=== PATIENT | male | born 1980 | race Caucasian/White ===

== ENCOUNTER 2024-02-25 11:06 | Outpatient (AMB) | payer BC, SELFPAY ==
--- NOTE | 2024-02-25 11:19 | MHC.OFFVIS ---
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 He reports tremors in his left leg, face about 5 years ago . He was on [place] at that time and was told it was related to that. [place] was stopped, started on zoloft . The tremors were predominantly on the left side and gradually worsened and involves the right side too. The tremors are mostly at rest. He describes the tremors as twitches and is better with movement. The twitches are worse when he is tired and towards the end of the day. He wakes up in the middle of the night with violent leg twitches and spasms.It is hard to fall asleep after he wakes up. He has snoring and has excessive daytime sleepiness. he reports creepy crawly sensation when he is trying to sleep or when at rest . Moving around helps He denies vivid dreams , reports occasional sleep paralysis. he sings and plays Guitar , piano. Last 18 mths he has noticed that his voice is hoarse, lost an octave and is softer.He also frequent chokes on Liquids. No exposure to neuroleptics or metaclopramide. No h/o head injury. he has neck pain. 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 [facility] Medical History (Updated 02/25/24 @ 12:08 by Mackenzie Perez MD) Neck pain Hypersomnia Snoring Restless legs syndrome (RLS) Tremors of nervous system Benign head tremor Bradshaw's palsy ADD (attention deficit disorder) Anxiety Vitamin D deficiency Psoriatic arthritis Depression Surgical History History of appendectomy Family History Mother HTN (hypertension) COPD (chronic obstructive pulmonary disease) Paternal Grandfather Parkinsons disease Maternal Grandmother Diabetes Maternal Grandfather Diabetes Physical Exam Vital Signs: Last Vital Signs Pulse 90 02/25/24 11:24 BP 115/78 02/25/24 11:24 Pulse Ox 97 02/25/24 11:24 Oxygen Delivery Method Room Air 02/25/24 11:24 BMI result Body Mass Index 28.8 Const General: cooperative and comfortable Nutritional Appearance: average body habitus Orientation/consciousness: patient oriented x3 HEENT Head: Yes normal to inspection and Yes normocephalic Neck Neck: Yes no meningeal signs Neuro Other: Neck tightness with decreased range of motion , tenderness in lateral neck muscles Head tremors - arrhythmic movements - side to side Speech- normal ( nasal tone) Mild left LE rest tremors and left UE tremors FFM and foot taps normal slow but normal gait - can tandem Mallampatti grade 4 General: patient oriented x3, tone normal, moves all extremities, no meningeal signs and no focal motor deficits Cranial nerves: Yes Nystagmus not present, Yes Normal facial strength present and Yes Symmetric palate elevation present Cognition (Neuro): normal cognition Motor exam (neuro): 5/5 motor strength present throughout and Normal motor muscle tone present throughout Deep tendon reflexes (DTR's): Right triceps reflex intensity grade: 1+, Left triceps reflex intensity grade: 1+, Rt Biceps (C5, C6): 1+, Left biceps reflex intensity grade: 1+, Right brachioradialis reflex intensity grade: 1+, Left brachioradialis reflex intensity grade: 1+, Right patellar reflex intensity grade: 1+ and Left patellar reflex intensity grade: 1+ Coordination: kxheir-va-pofo test normal Psych Appearance: grossly normal Mental Status: mental status grossly normal Speech and movement: Normal speech and movement present Affect: normal affect Assessment & Plan Assessment & Plan (1) 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 related to lithium exposure Code(s): G25.0 - Essential tremor Category: Medical (2) Tremors of nervous system: Comment: related to mood and lithium exposure Code(s): R25.1 - Tremor, unspecified Category: Medical (3) Restless legs syndrome (RLS): Code(s): G25.81 - Restless legs syndrome Category: Medical (4) Snoring: Code(s): R06.83 - Snoring Category: Medical (5) Hypersomnia: Code(s): G47.10 - Hypersomnia, unspecified Category: Medical Plan MRI brain SLeep study to r/o sleep apnea and PLMD I will trial him on gabapentin 300mg qhs C spine X ray to evaluate neck pain Declines PT or speech therapy due to lack of time No evidence of Parkinson on todays exam Orders: Orders RT PSG in-lab sleep study Today G25.81 - Restless legs syndrome, G47.10 - Hypersomnia, unspecified, R06.83 - Snoring MR head/brain wo con Today G25.0 - Essential tremor, R25.1 - Tremor, unspecified XR cervical spine 3V Today M54.2 - Cervicalgia Medications: New gabapentin 300 mg PO BEDTIME 30 caps 6RF Coding Level of Care Code New Pt Level 4 (95589) Complex EM visit Add On G2211 Diagnoses Benign head tremor G25.0 Tremors of nervous system R25.1 Restless legs syndrome (RLS) G25.81 Snoring R06.83 Hypersomnia G47.10
[2024-02-25 11:24] VITALS: BP 115/78; PULSE 90; O2SAT 97; BMI 28.8
== END 2024-02-25 12:13 | disposition home or self-care (01) ==
PROVIDERS: Visit Provider Psychiatry & Neurology Neurology
DX: G25.0 Essential tremor (principal); R25.1 Tremor, unspecified; G25.81 Restless legs syndrome; R06.83 Snoring; G47.10 Hypersomnia, unspecified
CPT/HCPCS: 99204

== ENCOUNTER → 2024-02-25 11:06 | Outpatient (BNVA) | payer BC, SELFPAY | PROVIDERS: Visit Provider Psychiatry & Neurology Neurology ==

== ENCOUNTER → 2024-05-16 10:32 | Outpatient (BNV) | payer BC, SELFPAY | PROVIDERS: Visit Provider Radiology Diagnostic Radiology | DX: G08 Intracranial and intraspinal phlebitis and thrombophlebitis (principal) | CPT/HCPCS: 70553 ==

== ENCOUNTER 2024-05-16 10:34 | Outpatient (REF) | payer BC, SELFPAY ==
--- NOTE | ~2024-05-16 | MR_ITS ---
EXAMINATION: MR BRAIN WITHOUT AND WITH CONTRAST. MRV brain with contrast CLINICAL INFORMATION: Intracranial intraspinal phlebitis and thrombophlebitis. COMPARISON: MRI brain 03/18/2024 TECHNIQUE: Multiplanar, multisequence MRI of the brain was obtained before and after the intravenous administration of 9 mL gadolinium. . 3-D ixrc-dv-lirirn sequence with attention MRV of the brain was performed. . Raw and post process data is available for interpretation. FINDINGS: There is no restricted diffusion seen to suspect any acute ischemic changes. No magnetic susceptibility artifact seen to suspect acute or chronic hemorrhagic products. There is no calcification seen either. Previously seen flow void signal in the left transverse and sigmoid sinus on T1 sequence has resolved. The santiago to white matter differentiation is maintained normal. There is no abnormal signal in the supratentorial and infratentorial brain on T2 sequences. Postcontrast there is no abnormal enhancement seen. The lateral ventricles are symmetrical in size and configuration without enlargement. Normal flow void signal seen in the major cerebral vasculature. On MRV there is good opacification of superior inferior sagittal sinus and internal cerebral veins. Bilateral transverse, sigmoid sinuses and bilateral jugular veins are widely patent. There is mild relative ectasia of the basilar artery which appears unremarkable. Bilateral internal carotid arteries are visualized and patent. There is normal bifurcation and anterior middle sacral artery. A very small anterior communicating artery seen. No aneurysm or atherosclerotic narrowing noted. 2-D mefq-cv-elkvki postcontrast reveals. MR/MR head/brain wo/w con IMPRESSION: The thrombus within the left sigmoid and left transverse colon has resolved. There is good opacification of bilateral transverse, sigmoid sinuses and jugular veins. No thrombus visualized at this time. There is no acute bleed, infarct, edema or midline shift. Electronically signed by: Gilberto Moss MD 05/16/2024 04:02 PM [facility]
--- OUTSIDE RECORDS SUMMARY | 2024-05-16 10:37 | XMS_ITS ---
Author Name [facility] Unknown History of Medication Use Medication Directions Dispensed Refills Start Date End Date Stat ketoconazole (NIZORAL) 2 % cream Apply topically 2 (two) times a day. 03/05/2024 05/17/9999 active dicyclomine (BENTYL) 20 MG tablet Take 1 tablet 30 min prior to meals and bedtime as needed for diarrhea, cramping. 03/05/2024 05/17/9999 active sertraline (ZOLOFT) 50 MG tablet Take 100 mg by mouth daily. 03/05/2024 05/17/9999 active qzvthi-otemuaadn-kmhb esium sulfates (Suprep Bowel Prep Kit) 17.5-3.13-1.6 GM/177ML Solution solution Take two 177 mL bottles as directed 03/05/2024 05/17/9999 active lithium carbonate 300 MG IR capsule Take 300 mg by mouth 2 (two) times a day. 03/05/2024 05/17/9999 active amphetamine-dextroamp hetamine (ADDERALL) 10 MG tablet 2 (two) times a day in the morning and the early afternoon. 03/05/2024 05/17/9999 active OLANZapine (ZyPREXA) 5 MG tablet Take 5 mg by mouth daily. 03/05/2024 05/17/9999 active FLUoxetine (PROzac) 10 MG capsule 03/05/2024 05/17/9999 active doxycycline (VIBRA-TABS) 100 MG tablet Take 1 tablet (100 mg total) by mouth 2 (two) times a day. 03/05/2024 05/17/9999 active atorvastatin (LIPITOR) 40 MG tablet TAKE 1 TABLET BY MOUTH EVERY DAY 03/05/2024 05/17/9999 active ergocalciferol (VITAMIN D2,DRISDOL) 56889 units Cap TAKE 1 CAPSULE BY MOUTH ONE TIME PER WEEK 03/05/2024 05/17/9999 active metFORMIN (GLUCOPHAGE-XR) 500 MG 24 hr tablet TAKE 1 TABLET BY MOUTH EVERY DAY IN THE EVENING WITH FOOD 03/05/2024 05/17/9999 active baclofen (LIORESAL) 5 MG tablet 03/05/2024 05/17/9999 active eluxadoline (Viberzi) 100 MG tablet Take 1 tablet (100 mg total) by mouth 2 (two) times a day with meals. 03/05/2024 05/17/9999 active propranolol (INDERAL LA) 160 MG SR capsule 03/05/2024 05/17/9999 act royce Problems Problem Status Onset Date Problem Type Date of Resolution Source Irritable bowel syndrome with diarrhea active 2020-04-15 ProblemAct [facility] Involuntary movements active EncounterDiagnosis Act [facility] Tardive dyskinesia active EncounterDiagnosisAct [facility] Parkinson's disease, unspecified whether dyskinesia present, unspecified whether manifestations fluctuate (HCC) active EncounterDiagnosisAct C CT Heme positive stool active 2020-04-15 ProblemAct [facility]
[2024-05-16] MEDS: gadobutroL 10 ML VIAL IVPUSH (11:21)
== END 2024-05-16 10:35 | disposition home or self-care (01) ==
LOC: HO.MRI 10:34
PROVIDERS: Visit Provider Psychiatry & Neurology Neurology
DX: G08 Intracranial and intraspinal phlebitis and thrombophlebitis (principal)
CPT/HCPCS: 70553; A9585

== ENCOUNTER 2024-05-30 07:57 | Outpatient (AMB) | payer BC, SELFPAY ==
--- NOTE | 2024-05-30 08:06 | A.OFFVIS_ITS ---
Vital Signs 05/30/24 08:07 Height 6 ft Weight 200 lb 8 oz BMI 27.2 BP 120/76 Blood Pressure Location Rt brachial Position Sitting Pulse 77 Pulse Source Pulse Oximeter Pulse Oximetry (%) 96 Oxygen Delivery Method Room Air Intake Visit Reasons: Follow up Parkinsons Allergies No Known Allergies Allergy (Verified 05/30/24 08:08) Medication List - Last Reconciled 05/30/24 by Mackenzie Perez MD clonazepam 1 mg PO BEDTIME dextroamphetamine-amphetamine 10 mg (Adderall) 10 mg PO TID gabapentin 300 mg PO BEDTIME methotrexate sodium 2.5 mg PO QWEEK secukinumab (Cosentyx) 150 mg subcut Q4W semaglutide (Ozempic) 1 mg subcut QWEEK HPI Comments Details: 44y/o Right handed male comes for follow up. He is sleeping better with gabapentin so he declined sleep study. His tremor shave mildly improved. 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 the tremors have mildly improved . They are worse when he is sitting still and has difficulty when he plays guitar or piano. History form initial visit-.02/2024 He reports tremors in his left leg, face about 5 years ago . He was on [place] at that time and was told it was related to that. [place] was stopped, started on zoloft . The tremors were predominantly on the left side and gradually worsened and involves the right side too. The tremors are mostly at rest. He describes the tremors as twitches and is better with movement. The twitches are worse when he is tired and towards the end of the day. He wakes up in the middle of the night with violent leg twitches and spasms.It is hard to fall asleep after he wakes up. He has snoring and has excessive daytime sleepiness. he reports creepy crawly sensation when he is trying to sleep or when at rest . Moving around helps He denies vivid dreams , reports occasional sleep paralysis. he sings and plays Guitar , piano. Last 18 mths he has noticed that his voice is hoarse, lost an octave and is softer.He also frequent chokes on Liquids. No exposure to neuroleptics or metaclopramide. No h/o head injury. he has neck pain. 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 [facility] Medical History Neck pain Hypersomnia Snoring Restless legs syndrome (RLS) Tremors of nervous system Benign head tremor Bradshaw's palsy ADD (attention deficit disorder) Anxiety Vitamin D deficiency Psoriatic arthritis Depression Surgical History History of appendectomy Family History Mother HTN (hypertension) COPD (chronic obstructive pulmonary disease) Paternal Grandfather Parkinsons disease Maternal Grandmother Diabetes Maternal Grandfather Diabetes Physical Exam Vital Signs: Last Vital Signs Pulse 77 05/30/24 08:07 BP 120/76 05/30/24 08:07 Pulse Ox 96 05/30/24 08:07 Oxygen Delivery Method Room Air 05/30/24 08:07 BMI result Body Mass Index 27.2 Const General: cooperative and comfortable Nutritional Appearance: average body habitus Orientation/consciousness: patient oriented x3 HEENT Head: Yes normal to inspection and Yes normocephalic Neck Neck: Yes no meningeal signs Neuro Other: Neck tightness with decreased range of motion , tenderness in lateral neck muscles very mild Head tremors - arrhythmic movements - side to side- less compared to before Speech- normal ( nasal tone) Mild right postural tremors FFM and foot taps normal slow but normal gait - can tandem Mallampatti grade 4 General: patient oriented x3, tone normal, moves all extremities, no meningeal signs and no focal motor deficits Cranial nerves: Yes Nystagmus not present, Yes Normal facial strength present and Yes Symmetric palate elevation present Cognition (Neuro): normal cognition Motor exam (neuro): 5/5 motor strength present throughout and Normal motor muscle tone present throughout Coordination: [id number] test normal Psych Appearance: grossly normal Mental Status: mental status grossly normal Speech and movement: Normal speech and movement present Affect: normal affect Assessment & Plan Assessment & Plan (1) 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 related to lithium exposure Code(s): G25.0 - Essential tremor Category: Medical (2) Tremors of nervous system: Comment: related to mood and lithium exposure Code(s): R25.1 - Tremor, unspecified Category: Medical (3) Restless legs syndrome (RLS): Code(s): G25.81 - Restless legs syndrome Category: Medical Plan MRI brain MRv reviewed SLeep study - declined Continue gabapentin 300mg qhs Declines PT or speech therapy due to lack of time No evidence of Parkinson on todays exam Coding Level of Care Code Est Pt Level 4 (40326) Complex EM visit Add On G2211 Diagnoses Benign head tremor G25.0 Tremors of nervous system R25.1 Restless legs syndrome (RLS) G25.81
[2024-05-30 08:07] VITALS: BP 120/76; PULSE 77; O2SAT 96; BMI 27.2
== END 2024-05-30 08:39 | disposition home or self-care (01) ==
PROVIDERS: Visit Provider Psychiatry & Neurology Neurology
DX: G25.0 Essential tremor (principal); G25.81 Restless legs syndrome
CPT/HCPCS: 99214

== ENCOUNTER 2024-11-28 08:03 | Outpatient (AMB) | payer BC, SELFPAY ==
--- OUTSIDE RECORDS SUMMARY | 2024-05-26 04:40 | XMS_ITS ---
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 Name Role Phone Lorraine LOCKETT, Yasmeen Primary Care Provider Unavail able JANIS JANE Unavailable [phone] WillsonThierry loaizamario Unavailable [phone] Allergies Allergen (clinical drug ingredient) Drug/Non Drug Allergy documented on EMR Reaction Allergy Type Onset Date Status Wheat wheat (uncoded) swelling, skin rash Allergy Active REASON FOR VISIT Pt last saw PCP Yasmeen Peters MD , lab 03.08.24, fatigue 9/10 , AMS 2hrs, pain 7-8/10 neck, elbows, hands, knees, ankles,feet, Cosentyx 150 mg for PsA appr until 02/24/2025 ; QFN TB-Neg 03.08.24, last Cosentyx 05.02.24 Medications Medication SIG (Take, Route, Frequency, Duration) Notes Start Date End Date Status Vitamin D (Cholecalciferol) 50 MCG (1999) 1 capsule Orally Once a day Active Adderall XR 10 MG 1 capsule in the mor josse Orally three time a day Active Ozempic (1 MG/DOSE) 4 MG/3ML as directed Subcutaneous Act royce Pimecrolimus 1 % 1 application Diamond Sizer al Twice a day; Duration: 30 days Active Methotrexate Sodium 2.5 MG 6 tabs orally once a week; Duration: 28 days Active Folic Acid 1 MG 1 tablet Orally Once a day except on the Methotrexate day; Duration: 30 days 12/08/2023 Active Cosentyx Sensoready Pen 150 MG/ML 150 mg Subcutaneous once every 4 weeks 02/23/2024 Active Ergocalciferol 50,000 IU 1 capsule oral q week Active Vital Signs Blood pressure systolic 128 mm Hg 05/26/19 25 Blood pressure diastolic 83 mm Hg 025 Heart Rate 77 /min 05/26/2024 Temperature 36.3 C 05/26/2024 Encounters Encounter Location Date Provider Diagnosis [facility] [address], [place] [id number] 05/26/2024 Louis Willson Psoriatic arthritis L40.50 ; Rheumatoid factor positive R76.8 ; Lateral epicondylitis, right elbow M77.11 ; Trochanteric bursitis, right hip M70.61 ; Spondylosis without myelopathy or radiculopathy, lumbosacral 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 on Cosentyx and MTX 6 tabs/ week. 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 - OV 04.05.2024: Pt. on Cosentyx, loading dosages. Stopped Methotrexate since starting the Cosentyx in .Pt. to resume MTX at 6 tabs/ week and continue cosentyx. OV 10..24 insufficient response to Methotrexate. Adding a bDMARD is needed. Neurological symptoms (abnormal body movements) of unclear origin, pt awaits Neurology eval, will defer TNF blockers for now. OV .: Pt. on MTX and was tolerating well until recently when he had COVID. Medrol dose Gerald given and will continue with MTX. OV 12.08.2023: No evidence of ANCA Associated Vasculitis (normal renal function, normal UA, no chronic sinusitis, no vasculitic skin lesion, no NS involvement). Negative Antiphospholipid antibody panel (neg aCL, [id number], neg LAC). + Psoriasis, HS-CRP elevated. OV . Recent diagnosis of Psoriasis. Pt. reports ongoing severe polyarthralgia for past 4 years accompanied by prolonged morning stiffness 2 hours and fatigue. Inflammatory atraumatic back pain (improves with activity, not relieved by rest). Daily use of OTC anti-inflammatory, not effective. Labs now. Continue Methotrexate at 6 tabs/week C-spine XR, (B) shoulder XR. - PT defers X-rays and U/S because of deductible cost . At next OV (B) foot XR, (B) hand XR. - Defers Hold Cosentyx if you develop any allergic skin rash outside of the injection site. It is common to have an irritated skin at the Cosentyx injection site.Hold Cosentyx if you develop any infection.Covid -19 vaccines and Cosentyx - no adjustment of the timing of the vaccine in relation to Cosentyx is needed.No rheumatic contraindications to any inactivated (killed) vaccines. All Covid-19 vaccines are inactivated vaccines. Avoid live vaccines.Follow up with your PMD re: age appropriate vaccinations.Annual screening for tuberculosis with either a blood test (Quantiferon TB Gold) or PPD is advised when treated with Cosentyx.Return for Office visit in 3 months or sooner if needed. . 05/26/2024 Rheumatoid factor positive (ICD-10 - R76.8) Despite +RF no rheumatoid arthritis is seen 05/26/2024 Lateral epicondylitis, right elbow (ICD-10 - M77.11) 05/26/2024 Trochanteric bursitis, right hip (ICD-10 - M70.61) 05/26/2024 Spondylosis without myelopathy or radiculopathy, 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) 05/26/2024 Disorder of bone density and structure, unspecified (ICD-10 - M85.9) 05/26/2024 Plaque psoriasis (ICD-10 - L40.0) 05/26/2024 Celiac disease (ICD-10 - K90.0) 05/26/2024 Vitamin D deficiency (ICD-10 - E55.9) 05/26/2024 Pain in left elbow (ICD-10 - M25.522) Plan Of Treatment Medication Medication Name Sig Start Date Stop Date Notes Vitamin D (Cholecalciferol) 50 MCG (1999 UT) 1 capsule Orally Once a day Methotrexate Sodium 2.5 MG 6 tabs orally once a week; Duration: 28 days Folic Acid 1 MG 1 tablet Orally Once a day except on the Methotrexate day; Duration: 30 days 12/08/2023 Cosentyx Sensoready Pen 150 MG/ML 150 mg Subcutaneous once every 4 weeks 02/23/2024 Treatment Notes Assessment Notes Psoriatic arthritis Labs now. Continue Methotrexate at 6 tabs/week C-spine XR, (B) shoulder XR. - PT defers X-rays and U/S because of deductible cost . At next OV (B) foot XR, (B) hand XR. - Defers Hold Cosentyx if you develop any allergic skin rash outside of the injection site. It is common to have an irritated skin at the Cosentyx injection site.Hold Cosentyx if you develop any infection.Covid -19 vaccines and Cosentyx - no adjustment of the timing of the vaccine in relation to Cosentyx is needed.No rheumatic contraindications to any inactivated (killed) vaccines. All Covid-19 vaccines are inactivated vaccines. Avoid live vaccines.Follow up with your PMD re: age appropriate vaccinations.Annual screening for tuberculosis with either a blood test (Quantiferon TB Gold) or PPD is advised when treated with Cosentyx.Return for Office visit in 3 months or sooner if needed. . Pending Test Test Name Order Date HEPATIC FUNCTION PANEL 05/26/2024 CREATININE 05/26/2024 CBC (INCLUDES DIFF/PLT) 05/26/2024 SED RATE BY MODIFIED WESTERGREN 05/26/19 25 HS-CRP 05/26/2024 Next Appt Details Follow Up: 6 Weeks, Reason: Provider Name:Louis Willson, 02/10/2025 08:00:00 AM, [address] [place] [address], [phone], Progress Notes * VIKI OLIVERDOB:1980 (44 yo M)Acc No.[id number]:05/26/2024 Progress Notes Patient: VIKI KEYS Provider: Olya Willson APRN :1980 A ge:44 Y S ex:Male Date:05/26/2024 [facility] [id number] Pcp:Yasmeen Peters MD Subjective: * Chief Complaints: * 1 . Pt last saw PCP Yasmeen Peters MD . 2. Lab 03.08.24. 3. fatigue 9/10 , AMS 2hrs. 4. Pain 7-8/10 neck, elbows, hands, knees, ankles,feet. 5. Cosentyx 150 mg for PsA appr until 02/24/2025 ; QFN TB-Neg 03.08.24. 6. last Cosentyx 05.02.24. * HPI: R heumatology, Other: Demographics 4 2MW Psoriasis, Psoriatic Arthritis, Celiac Sprue, + ANCA. The patient presents with the following symptoms 1 .02.09 P t last saw PCP Yasmeen Peters MD , lab 03.08.24, fatigue 9/10 , AMS 2hrs, pain 7-8/10 neck, elbows, hands, knees, ankles,feet, Cosentyx 150 mg for PsA appr until 02/24/2025 ; QFN TB-Neg 03.08.24, last Cosentyx 05.02.24. P sA:Pt. on Cosentyx 150mg and MTX 6 tabs/ week. Tolerating well. 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 1 06.05.23 Pt last saw PCP Yasmeen Peters MD 02/2024, lab 03.08.24, fatigue 10/10, AMS 2hrs, pain 5-7/10 neck, elbows, hips, hands, knees, feet, Cosentyx 150 mg for PsA appr until 02/24/2025 ; QFN TB-Neg 03.08.24, last dose of Cosentyx 04/04/2024. P sA: P t. has had 4 loading dosages. Reports no side effects from it. Is tolerating wel. Unable to tell if its helping. 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 IgA undetectable. 9 . P t last saw PCP Dr. Peters , lab 7, fatigue 10/10 , AMS 2hr+, pain 2-6/10 shoulders, elbows, hands, RT hip, knees, ankles, feet, Neurologist; waiting for the referral to be sent. P sA:Pt. on MTX. Pt. states he was doing really well but he got COVID 2.5 weeks ago and since had been having increased fatigue and some worsening Psoriasis. Pt. did not end up taking the Paxlovid. Still experiencing cough and fatigue. P t last saw PCP Dr. Peters , lab 7.24, fatigue 10/10, AMS 2hs, pain 8- 9/10 hands, RT hip, LT elbow, knees, ankles, feet, CXR 11.24.23 NAD. L abs 11.24.2023: U caitlin acid 8.5 (H), Vit D 24 (L), LAC neg, HS-CRP 3.7 (H), RF 10 (H) D XA 7.:Normal X R R hip 7.:Normal X R LS 7.:Normal X R R elbow 7.:Osteophytes C XR 7.02.08 : NAD C ONSULT 7. P t was last seen by PMD Yasmeen Peters MD 10/2023, Fatigue 9/10, AMS 2hrs, pain 7-9/10 neck, elbow, hands, hips, knees,ankles, feet, Recent Xrays none /Recent DXA none, last labs 09/2023 quest. P t. reports pain in his leg that started about 4 years ago and as of now he has been having pain all over and exreme fatigue. Has been using Advil or Tylenol which has not helped. N O Recurrent feversNO Photosensitive skin rashes NO ALOPECIANO Raynaud's Phenomenon; No fingertip ulcer, No toe tip ulcerYES Dry eye, NO use of artificial tearsNO Dry mouth; NO Need to sip on water while swallowing a dry crackerNO Mouth ulcersNO GENITAL ULCERS EVERNO Ever skin biopsy N O Swollen painful jointsYES Painful but not swollen joints AND morning stiffness 30 or more minutesNO H/o pericarditisNO H/o Pleurisy or Pleural effusionsNO DRY COUGHYES FREQUENT SINUSITIS N O H/o low WBCNO H/o anemiaNO H/o low platelet count N O Ever deep vein thrombosis, NO arterial thrombosis, NO stroke, NO AMI Y ES atraumatic onset of back pain;;YES Back pain better with movement AND not relieved by restNO Back pain preciptated by trauma, N O Buttock pain, Y ES h/o tennis elbowNO h/o plantar fasciitisNO h/o frozen shoulderNO Trigger finger N O h/o uveitis, iritis Y ES GI problems -YES IBS, no food allergiesNO personal h/o Inflammatory Bowel DiseaseYES h/o celiac Sprue, N O Autoimmune FHx - no psoriasis, no Psoriatic Arthritis N O Autoimmune FHx : NO FHx Crohn's colitis, No FHx Ulcerative Colitis, No FHx Celiac Sprue N O Autoimmune FHx of NO Rheumatoid Arthritis, NO FHx lupus, No FX Multiple Sclerosis.. Medications Include C OSENTYX, L abs review 11.17.23 - h/o [place] (Dr. Jesus Peters), h/o Propranolol 120 mg/d; , METHOTREXATE 11/2023. Laboratory results include : Uric acid 8.5 (H), Vit D 24 (L), LAC neg, HS-CRP 3.7 (H), RF 10 (H). Diagnostic Imaging Includes C XR 11.24.23 NAD. 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 * ROS: R heumatology: Fatigue Y es. F ever N o. C hills N o. N ight Sweats Y es. W eight Loss N o. H ands change color in the cold Y es. D ry Eyes Y es. D ry Mouth Y es. S tiffness in AM Y es. J aw pain or tired when chewing Y es. H eadaches Y es. P ain in eyes N o. R edness in eyes N o. B lurred or Double Vision Y es. F loaters Y es. F lashes Y es. H air Loss that left bald patch behind N o. M outh ulcers N o. N nanette Ulcers N o.?Frequent sore throat Y es. L ymphadenopathy N o. C hest pain N o. S hortness of breath Y es. C ough N o. C oughing up Blood N o. H eartburn Y es.?Chest pain when taking in deep breath N o. W heezing N o. A bdominal pain N o. D iarrhea N o. N ausea N o. V omiting N o. C onstipation N o. Dysuria N o. I ncontinence N o. P rostate Troubles N o. M iscarriages?No. R ecurrent sinus infection Y es. R ecurrent ear infection Y es. B leeding gums N o. P soriasis Y es. S kin rash after sun exposure N o. N odules/Bumps No. M uscle weakness Y es. T ingling Y es. N umbness Y es. B urning N o. F alls N o. A nxiety Y es. D epression Y es. A nemia N o.?Bleeding Tendency N o. R inging in ears Y es. L oss of hearing Y es. H eight loss N o. H eart murmur N o. B lood in stool N o. H eel pain N o.?Fevers without infection N o. D iscomfort or pain in BUTTOCK N o. W eight GAIN?No. * Medical History: a rthritis: No, anxiety: Yes, asthma: No, eczema: Yes, psoriasis: Yes, osteoporosis: No, gout: No, hypothyroidism: No, abnormal liver function: No, fatty liver: No, acid reflux: Yes, bowel disorders: Yes, Crohns SI: No, ulcerative colitis: No, celiac sprue: Yes, diverticulosis: No, hives: No, hypertension: No, multiple sclerosis: No, recurrent sinusitis: No, sleep apnea: No, varicose veins: No, kidney stones: No, migraine headaches: No, human immunodeficiency virus (HIV), positive: No, cancer, colon: No, family history of colon cancer: No, Psoriasis. * Surgical History: A ppendectomy 2009, no EGD/Colonoscopy . * Family History: F ather: alive 70 yrs, healthy. M other: alive 68 yrs, healthy. P aternal Grand Father: , parkinsons. P aternal Grand Mother: Diabetes. M aternal Grand Father: Cancer, diabetes. Maternal Grand Mother: Diabetes. S iblings: 2 siblings healthy. C hildren: none. * Social History: T obacco Use: S moking: Yes. * Medications: T aking Cosentyx Sensoready Pen 150 MG/ML Solution Auto-injector 150 mg Subcutaneous once every 4 weeks , Taking Methotrexate Sodium 2.5 MG Tablet 6 tabs orally once a week , Taking Folic Acid 1 MG Tablet 1 tablet Orally Once a day except on the Methotrexate day , Taking Ergocalciferol 50,000 IU capsule 1 capsule oral q week , Taking Vitamin D (Cholecalciferol) 50 MCG (1999 UT) Capsule 1 capsule Orally Once a day , Taking Adderall XR 10 MG Capsule Extended Release 24 Hour 1 capsule in the morning Orally three time a day , Taking Ozempic (1 MG/DOSE) 4 MG/3ML Solution Pen-injector as directed Subcutaneous , Taking Pimecrolimus 1 % Cream 1 application External Twice a day , Discontinued Cosentyx Sensoready Pen 150 MG/ML Solution Auto-injector 150 mg Subcutaneous once a week x 5, then once every 4 weeks , Discontinued Medrol 4 MG Tablet Therapy Pack 6 TABS FIRST DAY, TAPER BY 1 TAB A DAY UNTIL OFF Orally daily * Allergies: W heat: Swelling, Skin Rash. Objective: * Vitals: B P:128/83mm Hg, HR:77/min, Temp:36.3C. * Examination: a llergy: GENERAL APPEARANCE: i n no acute distress, well developed, well nourished. HEAD: n ormocephalic, atraumatic, Thyroid not palpable, not tender, no temporal artery tenderness (B), , temporal artery pulse 2+(B), parotid glands not enlarged, no maxillary sinus tenderness (B). EYES: p upils equal, round, reactive to light and accommodation. EARS: n ormal. ORAL CAVITY: m ucosa moist, no lesions. THROAT: c lear. NECK/THYROID: n o cervical lymphadenopathy, no palpable thyroid. LYMPH NODES: n o lymphadenopathy. SKIN: s nina, erythematous patches Face around the eyes. - Psoriasis. HEART: n o costochondral tenderness, regular rate and rhythm, S1, S2 normal. LUNGS: c lear to auscultation bilaterally. ABDOMEN: n ormal, bowel sounds present, no hepatosplenomegaly, no masses palpable, no rebound tenderness, soft, nontender, nondistended. EXTREMITIES: n o clubbing, cyanosis, or edema, no nail pitting. NEUROLOGIC: n onfocal, motor strength normal upper and lower extremities, sensory exam intact. R heumatology: CERVICAL SPINES: n o vertebral tenderness, normal range of motion without discomfort, no paravertebral muscle spasm (B). LUMBAR SPINES: n o vertebral tenderness, straight leg raise unremarkable, normal forward and lateral bending, normal extension. SHOULDERS: n ormal range of motion w/o pain, No proximal muscle tenderness, (B)No proximal muscle weakness. ELBOWS: n o swelling, normal range of motion, R elbow tenderness, Louis Willson 12/08/2023 02:50:27 PM EDT > . WRISTS: ( B)wrist no synovitis, normal range of motion without discomfort, negative Tinel's sign. HANDS: n o synovitis, no tenderness, normal range of motion, no tenderness of the flexor tendons. HIPS: n ormal range of motion, (B)no trochanteric tenderness, (B)no inguinal tenderness, (B)No proximal muscle tenderness , (B)No proximal muscle weakness.? KNEES: ( B)no tenderness, no effusion, , normal alignment and range of motion. ANKLES: ( B)no tenderness, no swelling, ankle joint tenderness, swelling, normal range of motion, no (B)plantar fascia tenderness at the insertion into calcaneal bone, no (B)Achilles enthesis tenderness. FEET: n ormal, no pain or swelling, full ROM. THORACIC SPINE: n o vertebral tenderness, full ROM. SACROILIAC: n o tenderness, sacroiliac stressing test negative, (B) Tin's test negative . FIBROMYALGIA TENDER POINTS: N o diffuse trigger point tenderness. Assessment: * Assessment: 1. P soriatic arthritis - L40.50 (Primary) S pecify :celiac sprue, IBS, Psoriasis; referred by Dr. Peters; +hsC-RP 12.8H in ; N otes :- OV 05.26.2024: Pt. on Cosentyx and MTX 6 tabs/ week. 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 - OV 04.05.2024: Pt. on Cosentyx, loading dosages. Stopped Methotrexate since starting the Cosentyx in .Pt. to resume MTX at 6 tabs/ week and continue cosentyx.OV 10.01.08 insufficient response to Methotrexate. Adding a bDMARD is needed. Neurological symptoms (abnormal body movements) of unclear origin, pt awaits Neurology eval, will defer TNF blockers for now. OV 9.: Pt. on MTX and was tolerating well until recently when he had COVID. Medrol dose Gerald given and will continue with MTX.OV 12.08.2023: No evidence of ANCA Associated Vasculitis (normal renal function, normal UA, no chronic sinusitis, no vasculitic skin lesion, no NS involvement). Negative Antiphospholipid antibody panel (neg aCL, [id number], neg LAC). + Psoriasis, HS-CRP elevated.OV . Recent diagnosis of Psoriasis. Pt. reports ongoing severe polyarthralgia for past 4 years accompanied by prolonged morning stiffness 2 hours and fatigue. Inflammatory atraumatic back pain (improves with activity, not relieved by rest). Daily use of OTC anti-inflammatory, not effective. 2 . R heumatoid factor positive - R76.8 S pecify :11.24.2023 RF 10 (H), nl < 6.0; N otes :Despite +RF no rheumatoid arthritis is seen 3 . L ateral epicondylitis, right elbow - M77.11 4 . T rochanteric bursitis, right hip - M70.61 5 . S pondylosis without myelopathy or radiculopathy, lumbosacral region - M47.817 6 . D isorder of bone density and structure, unspecified - M85.9 S pecify :DXA NAD 7 . P laque psoriasis - L40.0 8 . C eliac disease - K90.0? 9. V itamin D deficiency - E55.9 S pecify :11.24.2023 Vit D 24 (L) 1 0. P ain in left elbow - M25.522 Plan: * Treatment: 2. V itamin D deficiency Continue Vitamin D (Cholecalciferol) Capsule, 50 MCG (1999 UT), 1 capsule, Orally, Once a day. * Follow Up: 6 Weeks * * Electronic signature of Abby Willson APRN on 11/28/2024 at 08:06 AM EDT Sign off status: Pending * Provider: Olya Willson APRN Date: 0 05/26/2024 Generated for Jesus irene/Mariann/Ian on: 0 11/28/2024 08:06 AM EDT History and Physical Notes * HPI (History of Present Illness) Category Sub-Category Detail Notes Category Not es Rheumatology, Other Demographics 42MW Psoriasis, Psoriatic Ar thritis, Celiac Sprue, + ANCA 12.08.2023 ANCA positive-> Questions: YES Recurrent sinusitis YES Shortness of breath NO Cough NO Elevated serum Creatinine NO Abnormal urinalysis (IF Abnormal urinalysis-> NO Elevated urine RBC NO Proteinuria); NO vasculitic skin rashes NO special organ involvement: NO EYE involvement -episcleritis, scleritis, intermediate uveitis, posterior uveitis, retro-orbital tumor); 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 PsA: Pt. on Cosentyx 150mg and MTX 6 tabs/ week. Tolerating well. 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 04.05.24 Pt last saw PCP Yasmeen Peters MD 02/2024, lab 03.08.24, fatigue 10/10, AMS 2hrs, pain 5-7/10 neck, elbows, hips, hands, knees, feet, Cosentyx 150 mg for PsA appr until 02/24/2025 ; QFN TB-Neg 03.08.24, last dose of Cosentyx 04/04/2024. PsA: Pt. has had 4 loading dosages. Reports no side effects from it. Is tolerating wel. Unable to tell if its helping. 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 IgA undetectable. 01.19.2024 Pt last saw PCP Dr. Peters , lab 11.24.23, fatigue 10/10 , AMS 2hr+, pain 2-6/10 shoulders, elbows, hands, RT hip, knees, ankles, feet, Neurologist; waiting for the referral to be sent. PsA: Pt. on MTX. Pt. states he was doing really well but he got COVID 2.5 weeks ago and since had been having increased fatigue and some worsening Psoriasis. Pt. did not end up taking the Paxlovid. Still experiencing cough and fatigue. 12.08.2023 Pt last saw PCP Dr. Peters , lab 11.24.23, fatigue 10/10, AMS 2hs, pain 8-9/10 hands, RT hip, LT elbow, knees, ankles, feet, CXR 11.24.23 NAD. Labs 11.24.2023: Uric acid 8.5 (H), Vit D 24 (L), LAC neg, HS-CRP 3.7 (H), RF 10 (H) DXA 7.: Normal XR R hip 7..2023: Normal XR LS 7.: Normal XR R elbow 7.: Osteophytes CXR 11.24.23 : NAD CONSULT . Pt was last seen by PMD Yasmeen Peters MD 10/2023, Fatigue 9/10, AMS 2hrs, pain 7-9/10 neck, elbow, hands, hips, knees,ankles, feet, Recent Xrays none /Recent DXA none, last labs 09/2023 quest. Pt. reports pain in his leg that started about 4 years ago and as of now he has been having pain all over and exreme fatigue. Has been using Advil or Tylenol which has not helped. NO Recurrent feversNO Photosensitive skin rashes NO ALOPECIANO Raynaud's Phenomenon; No fingertip ulcer, No toe tip ulcerYES Dry eye, NO use of artificial tearsNO Dry mouth; NO Need to sip on water while swallowing a dry crackerNO Mouth ulcersNO GENITAL ULCERS EVERNO Ever skin biopsy NO Swollen painful jointsYES Painful but not swollen joints AND morning stiffness 30 or more minutesNO H/o pericarditisNO H/o Pleurisy or Pleural effusionsNO DRY COUGHYES FREQUENT SINUSITIS NO H/o low WBCNO H/o anemiaNO H/o low platelet count NO Ever deep vein thrombosis, NO arterial thrombosis, NO stroke, NO AMI YES atraumatic onset of back pain;;YES Back pain better with movement AND not relieved by restNO Back pain preciptated by trauma, NO Buttock pain, YES h/o tennis elbowNO h/o plantar fasciitisNO h/o frozen shoulderNO Trigger finger NO h/o uveitis, iritis YES GI problems -YES IBS, no food allergiesNO personal h/o Inflammatory Bowel DiseaseYES h/o celiac Sprue, NO Autoimmune FHx - no psoriasis, no Psoriatic Arthritis NO Autoimmune FHx : NO FHx Crohn's colitis, No FHx Ulcerative Colitis, No FHx Celiac Sprue NO Autoimmune FHx of NO Rheumatoid Arthritis, NO FHx lupus, No FX Multiple Sclerosis. Medications Include COSENTYX, [place] bs review 11.17.23 - h/o [place] (Dr. Jesus Peters), h/o Propranolol 120 mg/d; , METHOTREXATE 11/2023 Laboratory results include 11.24.2023: Uri c acid 8.5 (H), Vit D 24 (L), LAC neg, HS-CRP 3.7 (H), RF 10 (H) Diagnostic Imaging Includes CXR 11.24.23 N AD Examination Category Sub-Category Detail Notes Category Not es Rheumatology CERVICAL SPINES: no vertebral te nderness, normal range of motion without discomfort, no paravertebral muscle spasm (B) LUMBAR SPINES: no vertebral tendern ess, straight leg raise unremarkable, normal forward and lateral bending, normal extension SHOULDERS: normal range of johnnie on w/o pain, No proximal muscle tenderness, (B)No proximal muscle weakness ELBOWS: no swelling, normal range of motion, R elbow tenderness, Louis Willson 12/08/2023 02:50:27 PM EDT > WRISTS: (B)wrist no synoviti s, normal range of motion without discomfort, negative Tinel's sign HANDS: no synovitis, no ten derness, normal range of motion, no tenderness of the flexor tendons HIPS: normal range of johnnie on, (B)no trochanteric tenderness, (B)no inguinal tenderness, (B)No proximal muscle tenderness , (B)No proximal muscle weakness KNEES: (B)no tenderness, no effusion, , normal alignment and range of motion ANKLES: (B)no tenderness, no swelling, ankle joint tenderness, swelling, normal range of motion, no (B)plantar fascia tenderness at the insertion into calcaneal bone, no (B)Achilles enthesis tenderness FEET: normal, no pain or s welling, full ROM THORACIC SPINE: no vertebral tendern ess, full ROM SACROILIAC: no tenderness, sacro iliac stressing test negative, (B) Tin's test negative FIBROMYALGIA TENDER POINTS: 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 allergy GENERAL APPEARANCE: in no acute distress, well developed, well nourished HEAD: normocephalic, atrau matic, Thyroid not palpable, not tender, no temporal artery tenderness (B), , temporal artery pulse 2+(B), parotid glands not enlarged, no maxillary sinus tenderness (B) EYES: pupils equal, round, reactive to light and accommodation EARS: normal THROAT: clear NECK/THYROID: no cervical lymphade nopathy, no palpable thyroid HEART: no costochondral ten derness, regular rate and rhythm, S1, S2 normal LUNGS: clear to auscultatio n bilaterally ABDOMEN: normal, bowel sounds present, no hepatosplenomegaly, no masses palpable, no rebound tenderness, soft, nontender, nondistended NEUROLOGIC: nonfocal, motor stre ngth normal upper and lower extremities, sensory exam intact SKIN: scaly, erythematous patches Face around the eyes. - Psoriasis EXTREMITIES: no clubbing, cyanosi s, or edema, no nail pitting LYMPH NODES: no lymphadenopathy ORAL CAVITY: mucosa moist, no les ions
--- NOTE | 2024-11-28 08:06 | A.OFFVIS_ITS ---
Vital Signs 11/28/24 08:08 11/28/24 08:08 Height 6 ft Weight 205 lb BP 120/78 Blood Pressure Location Lt brachial Position Sitting Pulse 91 Pulse Source Pulse Oximeter Pulse Oximetry (%) 98 Oxygen Delivery Method Room Air Intake Visit Reasons: Follow up Parkinsons Mangle Tender Required: No Accompanied by: Self / Same As Patient Allergies No Known Allergies Allergy (Verified 11/28/24 08:09) Medication List - Last Reconciled 11/28/24 by Mackenzie Perez MD carbidopa-levodopa 25-100 mg 1 tab PO BEDTIME clonazepam 1 mg PO BEDTIME dextroamphetamine-amphetamine 10 mg (Adderall) 10 mg PO ONCE gabapentin 900 mg (3 x 300 mg) PO BEDTIME methotrexate sodium 2.5 mg PO QWEEK secukinumab (Cosentyx) 150 mg subcut Q4W semaglutide (Ozempic) 1 mg subcut QWEEK HPI Comments Details: 44y/o Right handed male comes for follow up. He reports swallowing issues and neck pain worsened by head tremors.He still has sleep issues . PCP increased his gabapentin dose but he has noticed any improvement. C spine Xray was ordered by his Records Management Director - i do not have the report but was told it was normal. His feet bothers him more now. He decreased his addreall dose to 10 mg qam The tremors have mildly improved . They are worse when he is sitting still and has difficulty when he plays guitar or piano. History form initial visit-.02/2024 He reports tremors in his left leg, face about 5 years ago . He was on [place] at that time and was told it was related to that. [place] was stopped, started on zoloft . The tremors were predominantly on the left side and gradually worsened and involves the right side too. The tremors are mostly at rest. He describes the tremors as twitches and is better with movement. The twitches are worse when he is tired and towards the end of the day. He wakes up in the middle of the night with violent leg twitches and spasms.It is hard to fall asleep after he wakes up. He has snoring and has excessive daytime sleepiness. he reports creepy crawly sensation when he is trying to sleep or when at rest . Moving around helps He denies vivid dreams , reports occasional sleep paralysis. he sings and plays Guitar , piano. Last 18 mths he has noticed that his voice is hoarse, lost an octave and is softer.He also frequent chokes on Liquids. No exposure to neuroleptics or metaclopramide. No h/o head injury. he has neck pain. 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 [facility] Medical History (Updated 11/28/24 @ 08:28 by Mackenzie Perez MD) Spasmodic torticollis Neck pain Hypersomnia Snoring Restless legs syndrome (RLS) Tremors of nervous system Benign head tremor Bradshaw's palsy ADD (attention deficit disorder) Anxiety Vitamin D deficiency Psoriatic arthritis Depression Surgical History History of appendectomy Family History Mother HTN (hypertension) COPD (chronic obstructive pulmonary disease) Paternal Grandfather Parkinsons disease Maternal Grandmother Diabetes Maternal Grandfather Diabetes Physical Exam Vital Signs: Last Vital Signs Pulse 91 11/28/24 08:08 BP 120/78 11/28/24 08:08 Pulse Ox 98 11/28/24 08:08 Oxygen Delivery Method Room Air 11/28/24 08:08 Const General: cooperative and comfortable Nutritional Appearance: average body habitus Orientation/consciousness: patient oriented x3 HEENT Head: Yes normal to inspection and Yes normocephalic Neck Neck: Yes no meningeal signs Neuro Other: Neck tightness with decreased range of motion , tenderness in lateral neck muscles very mild Head tremors - arrhythmic movements - side to side- less compared to before Speech- normal ( nasal tone) Mild right postural tremors FFM and foot taps normal slow but normal gait - can tandem Mallampatti grade 4 General: patient oriented x3, tone normal, moves all extremities, no meningeal signs and no focal motor deficits Cranial nerves: Yes Nystagmus not present, Yes Normal facial strength present and Yes Symmetric palate elevation present Cognition (Neuro): normal cognition Motor exam (neuro): 5/5 motor strength present throughout and Normal motor muscle tone present throughout Coordination: sdnjit-bw-mxqz test normal Psych Appearance: grossly normal Mental Status: mental status grossly normal Speech and movement: Normal speech and movement present Affect: normal affect Assessment & Plan Assessment & Plan (1) 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 related to lithium exposure Code(s): G25.0 - Essential tremor Category: Medical (2) Tremors of nervous system: Comment: related to mood and lithium exposure Code(s): R25.1 - Tremor, unspecified Category: Medical (3) Restless legs syndrome (RLS): Code(s): G25.81 - Restless legs syndrome Category: Medical (4) Spasmodic torticollis: Code(s): G24.3 - Spasmodic torticollis Category: Medical Plan MRI brain MRv reviewed Botox for neck muscle SLeep study - declined Continue gabapentin 900mg qhs Swallowing eval will start sinemet 25/100 qhs No evidence of Parkinson on todays exam Orders: Orders TSH reflex Free T4 Today G25.81 - Restless legs syndrome, R25.1 - Tremor, unspecified Ferritin Today G25.81 - Restless legs syndrome, R25.1 - Tremor, unspecified Erythrocyte Sedimentation Rate Today G25.81 - Restless legs syndrome, R25.1 - Tremor, unspecified Comprehensive Met. Panel Today G25.81 - Restless legs syndrome, R25.1 - Tremor, unspecified Vitamin B12 and Folate Today G25.81 - Restless legs syndrome, R25.1 - Tremor, unspecified Complete Blood Count Auto Diff Today G25.81 - Restless legs syndrome, R25.1 - Tremor, unspecified Referrals Speech and Hearing Referral R13.10 - Dysphagia, unspecified Medications: New carbidopa-levodopa 25-100 mg 1 tab PO BEDTIME 30 tabs 0RF Changed From gabapentin 300 mg PO BEDTIME 30 caps 6RF To gabapentin 900 mg (3 x 300 mg) PO BEDTIME 90 caps 6RF Coding Level of Care Code Est Pt Level 4 (73192) Complex EM visit Add On G2211 Diagnoses Benign head tremor G25.0 Tremors of nervous system R25.1 Restless legs syndrome (RLS) G25.81 Spasmodic torticollis G24.3
--- OUTSIDE RECORDS SUMMARY | 2024-11-28 08:07 | XMS_ITS | Clinical Summary ---
Author Organization [facility] Address [address] [place] [address] Care Team Providers Care Clerical Aide Name Role Phone Yasmeen Peters MD Primary Care Provider [phone] Allergies No known active allergies Medications propranolol (INDERAL LA) 160 MG SR capsule 0 Active lithium carbonate 300 MG IR capsule Take 300 mg by mouth 2 (two) times a day. 0 Active sertraline (ZOLOFT) 50 MG tablet Take 100 mg by mouth daily. 0 Active baclofen (LIORESAL) 5 MG tablet 0 Active amphetamine-dex troamphetamine (ADDERALL) 10 MG tablet 2 (two) times a day in the morning and the early afternoon. 0 Active ketoconazole (NIZORAL) 2 % creamIndication s:PV (pityriasis versicolor) Apply topically 2 (two) times a day. 30 g 0 Active doxycycline (VIBRA-TABS) 100 MG tabletIndicatio ns:Cellulitis of face Take 1 tablet (100 mg total) by mouth 2 (two) times a day. 14 tablet 0 Active OLANZapine (ZyPREXA) 5 MG tablet Take 5 mg by mouth daily. 0 Active metFORMIN (GLUCOPHAGE-XR) 500 MG 24 hr tablet TAKE 1 TABLET BY MOUTH EVERY DAY IN THE EVENING WITH FOOD 0 Active FLUoxetine (PROzac) 10 MG capsule 0 Active sodium-potassiu m-magnesium sulfates (Suprep Bowel Prep Kit) 17.5-3.13-1.6 GM/177ML Solution solutionIndicat ions:Irritable bowel syndrome with diarrhea Take two 177 mL bottles as directed 2 Bottle 0 Active dicyclomine (BENTYL) 20 MG tabletIndicatio ns:Irritable bowel syndrome with diarrhea Take 1 tablet 30 min prior to meals and bedtime as needed for diarrhea, cramping. 60 tablet 5 0 Active ergocalciferol (VITAMIN D2,DRISDOL) 80264 units CapIndications: Vitamin D deficiency TAKE 1 CAPSULE BY MOUTH ONE TIME PER WEEK 12 capsule 0 Active eluxadoline (Viberzi) 100 MG tabletIndicatio ns:Irritable bowel syndrome with diarrhea Take 1 tablet (100 mg total) by mouth 2 (two) times a day with meals. 60 tablet 1 Active atorvastatin (LIPITOR) 40 MG tabletIndicatio ns:Vitamin D deficiency TAKE 1 TABLET BY MOUTH EVERY DAY 90 tablet 1 Active Active Problems Problem Noted Date Diagnosed Date Heme positive stool 04/15/2020 Irritable bowel syndrome with diarrhea 0 Family History Medical History Relation Name Comments Hypertension Father Prostate cancer Maternal Grandfather Hyperlipidemia Mother Cancer, other Paternal Grandfather Relation Name Status Comments Father Alive Maternal Grandfather Mother Alive Paternal Grandfather Social History Tobacco Use Types Packs/Day Years Used Date Smoking Tobacco: Every Day Cigarettes 1 25 Smokeless Tobacco: Never Alcohol Use Standard Drinks/Week Comments Yes 0 (1 standard drink = 0.6 oz pur e alcohol) rare/social Sex and Gender Information Value Date Recorded Sex Assigned at Not on file Legal Sex Male 11:03 AM EDT Gender Identity Not on file Sexual Orientation Not on file Last Filed Vital Signs Vital Sign Reading Time Taken Comments Blood Pressure 130/90 04/17/2020 10:26 AM EST Pulse 71 01/16/2020 4:00 PM EDT Temperature 35.9 C (96.6 F) 04/17/2020 10:26 AM EST Respiratory Rate - - Oxygen Saturation - - Inhaled Oxygen Concentration - - Weight 88.5 kg (195 lb) 04/17/2020 10:26 AM EST Height 185.4 cm (6' 1 ) 04/17/2020 10:26 AM EST Body Mass Index 25.73 04/17/2020 10:26 AM EST Plan of Treatment Health Maintenance Due Date Last Done Comments DTaP/Tdap/Td Vaccines (1 - Tdap) 01/11/2000 Hepatitis B Vaccines (1 of 3 - 19+ 3-dose series) 01/11/2000 Pneumococcal Vaccine: Pediat caitlin (0-5 Years) and At-Risk Patients (6 to 49 Years) (1 of 2 - PCV) 01/11/2000 COVID-19 Vaccine (2 - 2023-2 5 season) 2024 09/09/2020 Influenza Vaccine 12/16/2024 HIV Screening Completed 02/23/2020 Hepatitis C Virus Screening Completed 02/23/2020 HPV Vaccines Aged Out No longer eligi ble based on patient's age to complete this topic Procedures Procedure Name Priority Date/Time Associated Diagnosis Comments HIV 1/2 AG/AB CMIA REFLEX TO CONFIRMATION Routine 02/23/2020 12:53 PM EDT Health maintenance examination HEPATITIS C VIRUS (HCV) ANTIBODY Routine 02/23/2020 12:53 PM EDT Health maintenance examination from Last 3 Months or Most Recently Relevant to Health Maintenance Results * HIV 1/2 Ag/Ab CMIA Reflex to Confirmation (02/23/2020 12:53 PM EDT) HIV Ag/Ab, 4th Gen NON-REACT ANEUDY NON-REACT ANEUDY [facility] Comment: HIV-1 antigen and HIV-1/HIV-2 antibodies were not detected. There is no laboratory evidence of HIV infection. PLEASE NOTE: This information has been disclosed to you from records whose confidentiality may be protected by state law. If your state requires such protection, then the state law prohibits you from making any further disclosure of the information without the specific written consent of the person to whom it pertains, or as otherwise permitted by law. A general authorization for the release of medical or other information is NOT sufficient for this purpose. For additional information please refer to http://education.shopa.[employer]/faq/LKC167 (This link is being provided for informational/ educational purposes only.) The performance of this assay has not been clinically validated in patients less than 2 years old. Blood specimen (specimen) 02/23/2020 12:53 PM EDT 02/23/2020 12:55 PM EDT Narrative [facility] - 02/24/2020 9:58 AM EDT FASTING:YES COLLECTION KIT GIVEN TO PATIENT. PATIENT ADVISED TO RETURN. FASTING: YES Resulting Agency Comment Performing Organization Information: Site ID: [id number] Name: [facility] Address: [address] [place] [address], [place] [address] Director: Roby Chávez MD Jess Quinn ELEVATOR INSPECTOR LAB BLOOD ORDERABLES Final Result Performing Organization Address [facility] Co de Phone Number [facility] [address] [place] [address] * Hepatitis C Virus (HCV) Antibody (02/23/2020 12:53 PM EDT) Hepatitis C Antibody NON-REACT ANEUDY NON-REACT ANEUDY [facility] Hepatitis C Antibody (s/co) 0.01 <1.00 [facility] Comment: HCV antibody was non-reactive. There is no laboratory evidence of HCV infection. In most cases, no further action is required. However, if recent HCV exposure is suspected, a test for HCV RNA (test code 23076) is suggested. For additional information please refer to http://education.[employer]/faq/VJF27k5 (This link is being provided for informational/ educational purposes only.) Blood specimen (specimen) 02/23/2020 12:53 PM EDT 02/23/2020 12:55 PM EDT Narrative [facility] - 02/24/2020 9:58 AM EDT FASTING:YES COLLECTION KIT GIVEN TO PATIENT. PATIENT ADVISED TO RETURN. FASTING: YES Resulting Agency Comment Performing Organization Information: Site ID: [id number] Name: [facility] Address: [address] [place] [address], [place] [address] Director: Roby Chávez MD Jessmaryana Nixon ELEVATOR INSPECTOR LAB BLOOD ORDERABLES Final Result Performing Organization Address [facility] de Phone Number [facility] [address] [place] [address] [place] [address] from Last 3 Months or Most Recently Relevant to Health Maintenance Insurance [employer] [place] PPO [facility] - PPO [employer] [address] [address] PPO Care Teams Clerical Aide Relationship Specialty Start Date End Date Yasmeen Peters MD [address] [place] [address] PCP - General Psychiatry, General 03/07/24
--- OUTSIDE RECORDS SUMMARY | 2024-11-28 08:07 | XMS_ITS ---
Author Name [facility] Organization Unknown History of Medication Use Medication Directions Dispensed Refills Start Date End Date Stat us meieaa-ifvzzqebm-pclr esium sulfates (Suprep Bowel Prep Kit) 17.5-3.13-1.6 GM/177ML Solution solution Take two 177 mL bottles as directed 04/17/2020 active doxycycline (VIBRA-TABS) 100 MG tablet Take 1 tablet (100 mg total) by mouth 2 (two) times a day. 01/20/2020 active ketoconazole (NIZORAL) 2 % cream Apply topically 2 (two) times a day. 01/16/2020 active propranolol (INDERAL LA) 160 MG SR capsule 01/11/2020 act royce lithium carbonate 300 MG IR capsule Take 300 mg by mouth 2 (two) times a day. 01/02/2020 active Problems Problem Status Onset Date Problem Type Date of Resolution Source Irritable bowel syndrome with diarrhea active 2020-04-15 ProblemAct [facility] Involuntary movements active EncounterDiagnosis Act [facility] Heme positive stool active 2020-04-15 ProblemAct [facility] Tardive dyskinesia active EncounterDiagnosisAct [facility] Parkinson's disease, unspecified whether dyskinesia present, unspecified whether manifestations fluctuate ([facility]) active EncounterDiagnosisAct [facility] Encounters Encounter Type Encounter Reason Primary Diagnosis Location Date Ambulatory Day [facility] 10/17 Care Team Organization Name Specialty Phone Email Start Date End Da te [facility] 03/07/2024 [place] [facility] 11/14/2022 01/04/2024 [facility] 06/18/2020 06/18/2020
--- OUTSIDE RECORDS SUMMARY | 2024-11-28 08:07 | XMS_ITS | Clinical Summary ---
Author Organization [facility] Address [address] [place] [address] Care Team Providers Care Cigarette Maker Name Role Phone Unavailable Primary Care Provider Unavailabl e Social History Tobacco Use Types Packs/Day Years Used Date Smoking Tobacco: Never Assessed Sex and Gender Information Value Date Recorded Sex Assigned at Not on file Legal Sex Male 11:15 AM EST Gender Identity Not on file Sexual Orientation Not on file Plan of Treatment Health Maintenance Due Date Last Done Comments Depression: Screening Annual ly using PHQ-2/9 in Adults 18 yrs or above (or HM Modifier)([facility]) 1999 Hepatitis C Virus Infection in Adolescents and Adults: Screening (or Modifier) ([facility]) 1999 SDOH Screening Reminder: Kisha menard for all adults ([facility]) 1999 Tobacco Smoking Cessation: i n Adults excluding Women: Behavioral and Pharmacotherapy Interventions ([facility]) 1999 DTaP/Tdap/Td Vaccines ([facility]) (1 - Tdap) 01/11/2000 COVID-19 Vaccine Screening: Initial Series and Booster Status ([facility]) ( - 2023- season) 2024 Flu Vaccination: Yearly for ages 18mos through 64 years (or Modifier)([facility]) 12/16/2024 Zoster/Shingles Vaccine Seri es Screening: Adults aged 18+ yrs (or HM Modifiers)([facility]) (1 of 2) 2031 Pneumococcal Vaccination Scr eening: Pts 0-19 & 19-49 yrs of age ([facility]) Aged Out No longer eligible based on patient's age to complete this topic Medical Devices Not on file
--- OUTSIDE RECORDS SUMMARY | 2024-11-28 08:07 | XMS_ITS | Clinical Summary ---
Author Organization [facility] Address [address] [place] [address] Care Team Providers Care Wax Pumper Name Role Phone Ozzy Burden MD Primary Care Provider [phone] Allergies Active Allergy Reactions Criticality Noted Date Comments Varenicline 06/03/2011 Reactions: GI Upset , Reactions: Vomiting Medications * This document contains information received from the source organization and may not represent a complete record from that organization. Valacyclovir HCl (VALTREX) 1 g tablet TAKE 2 TABLETS EVERY 12 HOURS FOR 1 DAY. 12 tablet 1 07/22/2010 Active LORazepam (ATIVAN) 0.5 MG tablet TAKE 1 TABLET 3 TIMES A DAY NEEDED 30 0 06/03/2011 Active Amphetamine-Dex troamphetamine (ADDERALL XR) 10 MG 24 hr capsule TAKE 1 CAPSULE DAILY FOR ADHD. 30 0 12/02/2011 Active Amphetamine-Dex troamphetamine (ADDERALL) 10 MG tablet TAKE 1 TABLET DAILY DIRECTED. 30 0 08/12/2012 Active Active Problems Problem Noted Date Diagnosed Date Transient gluten sensitivity 01/03/2014 Fatigue 08/12/2012 Acute bronchitis 03/04/2012 Wheezing 03/04/2012 Joint pain, elbow 03/04/2012 Trigger thumb 03/04/2012 Acute sinusitis 03/04/2012 Arthralgia of multiple sites 12/02/2011 Tension type headache 12/02/2011 Myalgia and myositis 12/02/2011 Arthralgia of temporomandibular joint 06/03/2011 Anxiety 06/03/2011 Herpes simplex 07/22/2010 Irritable bowel syndrome 07/22/2010 Acute suppurative otitis media 03/14/2010 Cough 03/14/2010 Neck strain 11/29/2009 Essential familial hypercholesterolemia 07/28/19 10 Nicotine dependence 07/27/2009 Attention-deficit/hyperactivity disorder 010 Immunizations Immunization Administration Dates Next Due Tdap 10/06/2008 Social History Tobacco Use Types Packs/Day Years Used Date Smoking Tobacco: Never Assessed Sex and Gender Information Value Date Recorded Sex Assigned at Not on file Legal Sex Male 8:45 PM EDT Gender Identity Not on file Sexual Orientation Not on file Last Filed Vital Signs Vital Sign Reading Time Taken Comments Blood Pressure 112/74 01/03/2014 8:41 AM EDT RUE/Sitting RUE/Sitting Pulse 81 01/03/2014 8:41 AM EDT L Radial,Regular Temperature 36.8 C (98.2 F) 03/04/2012 9:07 AM EDT Respiratory Rate - - Oxygen Saturation 96% 01/03/2014 8:4 1 AM EDT Inhaled Oxygen Concentration - - Weight 82.6 kg (181 lb 15.9 oz) 01/03/2014 8:41 AM EDT Height 182.9 cm (6') 01/03/2014 8:41 AM EDT Body Mass Index 24.68 01/03/2014 8:41 AM EDT Plan of Treatment Health Maintenance Due Date Last Done Comments Hepatitis C Screening 1981 Hep B (1 of 3 - 19+ 3-dose series) 01/11/2000 DTaP/Tdap/Td (2 - Td or Tdap) 10/06/2018 10/06/2008 COVID-19 Vaccine ( - 2023-2 5 season) 2024 Influenza (#1) 2025 Zoster (Shingrix) (1 of 2) 2031 HPV Vaccine Aged Out No longer eligi ble based on patient's age to complete this topic Hep A Aged Out No longer eligi ble based on patient's age to complete this topic Hib Aged Out No longer eligi ble based on patient's age to complete this topic Meningococcal ACWY Aged Out No longer eligible based on patient's age to complete this topic Pneumococcal Aged Out No longer eligi ble based on patient's age to complete this topic Care Teams Wax Pumper Relationship Specialty Start Date End Date Ozzy Burden MD [address] [place] [address] [facility] - General 12/22/22
--- OUTSIDE RECORDS SUMMARY | 2024-11-28 08:07 | XMS_ITS | Clinical Summary ---
Author Organization [facility] Address [address] [place] [address] Care Team Providers Care Satellite Dish Repairer Name Role Phone HussainJess lopez Jorge GOMEZ Primary Care Provider + Allergies No known active allergies Medications Medication Sig Dispensed Refills Start Date End Date Status baclofen (LIORESAL) 20 MG tablet Take 20 mg by mouth every night at bedtime. 0 11/03/2019 Active propranolol (INDERAL LA) 120 MG 24 hr capsule Take 120 mg by mouth daily. 0 11/03/2019 Active lithium carbonate 300 MG capsule 0 11/10/2019 Active sertraline (ZOLOFT) 25 MG tablet Take 25 mg by mouth daily. 0 11/01/2019 Active amphetamine-dextroamphe tamine (ADDERALL) 10 MG tablet Take 10 mg by mouth daily. 0 Active Active Problems No known active problems Family History Medical History Relation Name Comments Hearing loss Father Relation Name Status Comments Father Social History Tobacco Use Types Packs/Day Years Used Date Smoking Tobacco: Every Day Smokeless Tobacco: Former Alcohol Use Standard Drinks/Week Comments Yes 0 (1 standard drink = 0.6 oz pur e alcohol) Sex and Gender Information Value Date Recorded Sex Assigned at Not on file Gender Identity Not on file Sexual Orientation Not on file Job Start Date Occupation Industry Not on file Not on file Not on file Last Filed Vital Signs Vital Sign Reading Time Taken Comments Blood Pressure - - Pulse - - Temperature - - Respiratory Rate - - Oxygen Saturation - - Inhaled Oxygen Concentration - - Weight 88.5 kg (195 lb) 11/17/2019 2:04 PM EDT Height 185.4 cm (6' 1 ) 11/17/2019 2:04 PM EDT Body Mass Index 25.73 11/17/2019 2:04 PM EDT Plan of Treatment Health Maintenance Due Date Last Done Comments Hepatitis B Vaccines (1 of 3 - 3-dose series) 1981 Hepatitis C Screening 1981 COVID-19 Vaccine (#1) 1981 Pneumococcal Vaccine (1 of 2 - PCV) 1987 Depression Screening 1993 BMI Counseling 1999 Preventative Health Evaluation 1999 Tobacco Cessation Counseling 1999 DTap / Tdap / Td (2 - Td or Tdap) 10/06/2018 009 Influenza Vaccine (#1) 2025 RSV Ped < 20 months Aged Out No longe r eligible based on patient's age to complete this topic Care Teams Satellite Dish Repairer Relationship Specialty Start Date End Date Jess Nixon APRN PCP - General Internal Medicine 11/17/19
[2024-11-28 08:08] VITALS: BP 120/78; PULSE 91; O2SAT 98
== END 2024-11-28 08:32 | disposition home or self-care (01) ==
LOC: HO.HSMS 08:04
PROVIDERS: Visit Provider Psychiatry & Neurology Neurology
DX: G25.0 Essential tremor (principal); G25.81 Restless legs syndrome; G24.3 Spasmodic torticollis
CPT/HCPCS: 99214

== ENCOUNTER 2025-02-14 13:29 | Outpatient (AMB) | payer BC, SELFPAY ==
--- OUTSIDE RECORDS SUMMARY | 2024-11-08 04:00 | XMS_ITS ---
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 Name Role Phone Lorraine LOCKETT, Yasmeen Primary Care Provider Unavail able JOCELYN JANE Unavailable [phone] Louis Willson Unavailable [phone] Allergies Allergen (clinical drug ingredient) Drug/Non Drug Allergy documented on EMR Reaction Allergy Type Onset Date Status Wheat wheat (uncoded) swelling, skin rash Allergy Active REASON FOR VISIT Pt last saw PCP Yasmeen Peters MD ..25, lab 03/08/2024, fatigue / , AMS 2hr+, pain 6-02/24 neck, elbows, hips, hands, knees, feet, QFN TB-Neg 03.08.24, Cosentyx 150 mg for PsA appr until 02/24/2025 ;, Stable on Cosentyx but still have joint pain, last Cosentyx 6.1.25 Medications Medication SIG (Take, Route, Frequency, Duration) Notes Start Date End Date Status Ozempic (1 MG/DOSE) 4 MG/3ML as directed Subcutaneous Act royce Adderall XR 10 MG 1 capsule in the mor josse Orally three time a day Active Vitamin D (Cholecalciferol) 50 MCG (1999 UT) 1 capsule Orally Once a day Active Pimecrolimus 1 % 1 application Fisher Eel Spear al Twice a day; Duration: 30 days Active Gabapentin 300 MG Oral; Duration: 30 Days Active Ergocalciferol 50,000 IU 1 capsule oral q week Active Folic Acid 1 MG 1 tablet Orally Once a day except on the Methotrexate day 12/08/2023 Active Methotrexate Sodium 2.5 MG TAKE 6 TABLET S BY MOUTH EVERY WEEK Active Cosentyx Sensoready Pen 150 MG/ML 300 mg Subcutaneous once every 4 weeks; Duration: 28 days Active Vital Signs Blood pressure systolic 129 mm Hg 11/09/19 25 Blood pressure diastolic 88 mm Hg 025 Heart Rate 79 /min 11/08/2024 Temperature 36.3 C 11/08/2024 Height 184.7 cm 11/08/2024 Encounters Encounter Location Date Provider Diagnosis [facility] [address] [id number] 11/08/2024 Louis Willson Psoriatic arthritis L40.50 ; Celiac disease K90.0 ; Plaque psoriasis L40.0 ; Rheumatoid factor positive R76.8 and Disorder of bone density and structure, unspecified M85.9 Assessments Encounter Date Diagnosis (ICD Code) Assessment Notes Treatment Notes Treatment Clinical Notes Section Notes 11/08/2024 Psoriatic arthritis (ICD-10 - L40.50) - OV 11.08.2024 Pt. on Cosentyx 150mg and MTX 6 tabs/ week. Pt. educated to take Cosentyx every 4 weeks. Worsening polyarthralgia on Cosentyx 150mg. - OV 1.: Pt. on Cosentyx and MTX 6 tabs/ week. And also working with electronic funds transfer coordinator and which is helping as well. - OV 04.05.2024: Pt. on Cosentyx, loading dosages. Stopped Methotrexate since starting the Cosentyx in .Pt. to resume MTX at 6 tabs/ week and continue cosentyx. OV 02.23.24 insufficient response to Methotrexate. Adding a bDMARD [...] involvement). Negative Antiphospholipid antibody panel (neg aCL, [id number], neg LAC). + Psoriasis, HS-CRP elevated. OV . Recent diagnosis of Psoriasis. Pt. reports ongoing severe polyarthralgia for past 4 years accompanied by prolonged morning stiffness 2 hours and fatigue. Inflammatory atraumatic back pain (improves with activity, not relieved by rest). Daily use of OTC anti-inflammatory , not effective. Labs now. Continue Methotrexate at 6 tabs/week Take Cosentyx 300mg starting from next dose. every 4 weeks [facility] for on going sore throat [facility] [place], [place] [id number] C-spine XR, (B) shoulder XR. - PT defers X-rays and U/S because of deductible cost . At next OV (B) foot XR, (B) hand XR. - Defers Hold Cosentyx if you develop any allergic skin rash outside of the injection site. It is common to have an irritated skin at the Cosentyx injection site. Hold Cosentyx if you develop any infection. Covid -19 vaccines and Cosentyx - no adjustment of the timing of the vaccine in relation to Cosentyx is needed. No rheumatic contraindications to any inactivated (killed) vaccines. All Covid-19 vaccines are inactivated vaccines. Avoid live vaccines. Follow up with your PMD re: age appropriate vaccinations. Annual screening for tuberculosis with either a blood test (Quantiferon TB Gold) or PPD is advised when treated with Cosentyx. Return for Office visit in 3 months or sooner if needed. . 11/08/2024 Celiac disease (ICD-10 - K90.0) 11/08/2024 Plaque psoriasis (ICD-10 - L40.0) 11/08/2024 Rheumatoid factor positive (ICD-10 - R76.8) Despite +RF no rheumatoid arthritis is seen 11/08/2024 Disorder of bone density and structure, unspecified (ICD-10 - M85.9) Plan Of Treatment Medication Medication Name Sig Start Date Stop Date Notes Folic Acid 1 MG 1 tablet Orally Once a day except on the Methotrexate day 12/08/2023 Methotrexate Sodium 2.5 MG TAKE 6 TABLET S BY MOUTH EVERY WEEK Cosentyx Sensoready Pen 150 MG/ML 300 mg Subcutaneous once every 4 weeks; Duration: 28 days Treatment Notes Assessment Notes Psoriatic arthritis Labs now. Continue Methotrexate at 6 tabs/week Take Cosentyx 300mg starting from next dose. every 4 weeks [facility] for on going sore throat [facility].[address] [place] [phone] C-spine XR, (B) shoulder XR. - PT defers X-rays and U/S because of deductible cost . At next OV (B) foot XR, (B) hand XR. - Defers Hold Cosentyx if you develop any allergic skin rash outside of the injection site. It is common to have an irritated skin at the Cosentyx injection site. Hold Cosentyx if you develop any infection. Covid -19 vaccines and Cosentyx - no adjustment of the timing of the vaccine in relation to Cosentyx is needed. No rheumatic contraindications to any inactivated (killed) vaccines. All Covid-19 vaccines are inactivated vaccines. Avoid live vaccines. Follow up with your PMD re: age appropriate vaccinations. Annual screening for tuberculosis with either a blood test (Quantiferon TB Gold) or PPD is advised when treated with Cosentyx. Return for Office visit in 3 months or sooner if needed. . Pending Test Test Name Order Date HEPATIC FUNCTION PANEL 11/08/2024 CREATININE 11/08/2024 CBC (INCLUDES DIFF/PLT) 11/08/2024 SED RATE BY MODIFIED WESTERGREN 11/09/19 25 HS-CRP 11/08/2024 Next Appt Details Follow Up: 4 Weeks, Reason: Provider Name:Louis Willson, 05/05/2025 08:00:00 AM, [address] [place] [address], [phone], Provider Name:JANIS JANE, 06/22/2025 09:00:00 AM, [address] [place] [address], [phone], Progress Notes * VIKI OLIVERDOB:1980 (45 yo M)Acc No.[id number]:11/08/2024 Progress Notes Patient: VIKI KEYS Provider: Olya Willson APRN :1980 A ge:44 Y S ex:Male Date:11/08/2024 Address: [address], [place], [id number] Pcp:Yasmeen Peters MD Subjective: * Chief Complaints: * 1 . Pt last saw PCP Yasmeen Peters MD 11.04.24. 2. Lab 03/08/2024. 3. fatigue 8/10 , AMS 2hr+. 4. Pain 6-10/10 neck, elbows, hips, hands, knees, feet. 5. QFN TB-Neg 03.08.24. 6. Cosentyx 150 mg for PsA appr until 02/24/2025 ;. 7. Stable on Cosentyx but still have joint pain. 8. last Cosentyx .06.11. * HPI: R heumatology, Other: Demographics 4 2MW Psoriasis, Psoriatic Arthritis, Celiac Sprue, + ANCA; , HLA B27 Ag negative, neg ACPA-. The patient presents with the following symptoms - Pt. states he has been taking the Cosentyx on the 1st of every month. REports increased hip pain at night.?09/05/2024 ?PsA:?Pt. on Cosentyx 150mg and MTX 6 tabs/ week. Tolerating well. Pt. working with electronic funds transfer coordinator and as of now he is on Keto diet and states its definately helping in controlling the inflammation.?-Reviewed?DEXA 11.17.2023:?Normal ?01.02.09 ?Pt last saw PCP Yasmeen Peters MD , lab 03.08.24, fatigue 9/10 , AMS 2hrs, pain 7-8/10 neck, elbows, hands, knees, ankles,feet, Cosentyx 150 mg for PsA appr until 02/24/2025 ; QFN TB-Neg 03.08.24, last Cosentyx 05.02.24. ?PsA:Pt. on Cosentyx 150mg and MTX 6 tabs/ week. Tolerating well. Pt. working with electronic funds transfer coordinator and as of now he is on Keto diet and states its definately helping in controlling the inflammation.?04.05.24??Pt last saw PCP Yasmeen Peters MD 02/2024, lab 03.08.24, fatigue 10, AMS 2hrs, pain 5-7/10 neck, elbows, hips, hands, knees, feet, Cosentyx 150 mg for PsA appr until 02/24/2025 ; QFN TB-Neg03.08.24, last dose of Cosentyx 04/04/2024. ?PsA:?Pt. has had 4 loading dosages. Reports no side effects from it. Is tolerating wel. 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 IgA undetectable.?9. ?Pt last saw PCP Dr. Peters , lab 11.24.23, fatigue 02/24 , AMS 2hr+, pain 2-6/10shoulders, elbows, hands, RT hip, knees, ankles, feet, Neurologist; waiting for the referral to be sent. ?PsA:Pt. on MTX. Pt. states he was doing really well but he got COVID 2.5 weeks ago and since had been having increased fatigue and some worsening Psoriasis. Pt. did not end up taking the Paxlovid. Still experiencing cough and fatigue.?12.08.2023 ?Pt last saw PCP Dr. Peters , lab 11.24.23, fatigue 10/10, AMS 2hs, pain 8-910 hands, RT hip, LT elbow, knees, ankles, feet, CXR 11.24.23 NAD. ?Labs 11.24.2023:?Uric acid 8.5 (H), Vit D 24 (L), LAC neg, HS-CRP 3.7 (H), RF 10 (H) ?DXA 11.17.2023:Normal ?XR R hip 11.17.2023:Normal ?XR LS 11.17.2023:Normal ?XR R elbow 11.17.2023:Osteophytes ?CXR 11.24.23?: NAD ?CONSULT 11.17.2023???Pt was last seen by PMD Yasmeen Peters MD 10/2023, Fatigue 10, AMS 2hrs, pain 7-01/25 neck, elbow, hands, hips, knees,ankles, feet, Recent Xrays none /Recent DXA none, last labs 09/2023 quest. ?Pt. reports pain in his leg that started about 4 years ago and as of now he has been having pain all over and exreme fatigue. Has been using Advil or Tylenol which has not helped.?NO Recurrent feversNO Photosensitive skin rashes ?NO ALOPECIANO Raynaud's Phenomenon; No fingertip ulcer, No toe tip ulcerYES Dry eye, NO use of artificial tearsNO? Dry mouth; NO Need to sip on water while swallowing a dry crackerNO Mouth ulcersNO GENITAL ULCERS EVERNO Ever skin biopsy ?NO Swollen painful jointsYES Painful but not swollen joints AND morning stiffness 30 or more minutesNO H/o pericarditisNO H/o Pleurisy or Pleural effusionsNO DRY COUGHYES FREQUENT SINUSITIS ?NO H/o low WBCNO H/o anemiaNO H/o low platelet count?NO Ever deep vein thrombosis,? NO arterial thrombosis, NO stroke, NO AMI?YES atraumatic onset of back pain;;YES Back pain better with movement AND not relieved by restNO Back pain preciptated by trauma,?NO Buttockpain,?YES h/o tennis elbowNO h/o plantar fasciitisNO h/o frozen shoulderNO Trigger finger ?NO h/o uveitis, iritis ?YES GI problems -YES? IBS, no food allergiesNO personal h/o Inflammatory Bowel DiseaseYES h/o celiac Sprue,?NO Autoimmune FHx - no psoriasis, no Psoriatic Arthritis ?NO Autoimmune FHx : NO FHx Crohn's colitis, No FHx Ulcerative Colitis, No FHx Celiac Sprue ?NO Autoimmune FHx of? NO Rheumatoid Arthritis,? NO FHx lupus, No FX Multiple Sclerosis..?Medications Include?COSENTYX, ?Labs review 11.17.23 - h/o [place] (Dr. Jesus Peters), h/o Propranolol 120 mg/d; ?, METHOTREXATE 11/2023.?Laboratory results include?11.24.2023: Uric acid 8.5 (H), Vit D 24 (L), LAC neg, HS-CRP 3.7 (H), RF 10 (H).?Diagnostic Imaging Includes?CXR 11.24.23 NAD.? 7.23.2024 ANCA positive-> Questions: YES Recurrent sinusitis YES Shortness of breath NO Cough NO Elevated serum Creatinine NO Abnormal urinalysis (IF Abnormal urinalysis-> NO Elevated urine RBC NO Proteinuria); NO vasculitic skin rashes NO special organ involvement: NO EYE involvement -episcleritis, scleritis, intermediate uveitis, posterior uveitis, retro-orbitaltumor); YES FLAT SURFACER involvement. * ROS: R heumatology: Fatigue Y [...] eyes N o. R edness in eyes Y es. B lurred or Double Vision Y es. [...] A bdominal pain N o. D iarrhea Y es. N ausea N o. V omiting N o. C onstipation N o. Dysuria N o. I ncontinence N o. P rostate Troubles N o. M iscarriages?No. R ecurrent sinus infection Y es. R ecurrent ear infection Y es. B leeding gums N o. P soriasis Y es. S kin rash after sun exposure Y es. N odules/Bumps N o. M uscle weakness Y es. T ingling Y es. N umbness Y es. B urning N o. F alls N o. A nxiety Y es. D epression Y es. A nemia N o. B leeding Tendency N o. R inging in ears N o. L oss of hearing N o. H eight loss N o. H eart murmur N o. B lood in stool N o. H eel pain N o. F faheem without infection N o. D iscomfort or pain in BUTTOCK N o. W eight GAIN Y es. * Medical History: a rthritis: No, anxiety: [...] Mother: Diabetes. S iblings: 2 siblings healthy. Ankur kaur: none. * Medications: T aking Cosentyx Sensoready Pen 150 MG/ML Solution Auto-injector 150 mg Subcutaneous once every 4 weeks , Taking Methotrexate Sodium 2.5 MG Tablet TAKE 6 TABLETS BY MOUTH EVERY WEEK , Taking Folic Acid 1 MG Tablet 1 tablet Orally Once a day except on the Methotrexate day , Taking Ergocalciferol 50,000 IU capsule 1 capsule oral q week , Taking Adderall XR 10 MG Capsule Extended Release 24 Hour 1 capsule in the morning Orally three time a day , Taking Ozempic (1 MG/DOSE) 4 MG/3ML Solution Pen- injector as directed Subcutaneous , Taking Pimecrolimus 1 % Cream 1 application External Twice a day , Taking Vitamin D (Cholecalciferol) 50 MCG (2000 UT) Capsule 1 capsule Orally Once a day , Taking Gabapentin 300 MG Capsule Oral , Medication List reviewed and reconciled with the patient * Allergies: W heat: Swelling, Skin Rash. Objective: * Vitals: B P:129/88mm Hg, HR:79/min, Temp:36.3C, Ht-cm: 184.7 cm. * Examination: a llergy: GENERAL APPEARANCE: i [...] trigger point tenderness. Assessment: * Assessment: 1. C eliac disease - K90.0 2 . P soriatic arthritis - L40.50 (Primary) S pecify :celiac sprue, IBS, Psoriasis; referred by Dr. Peters; +hsC-RP 12.8H in ; Negative CCP Ab, HLA B27 Ag. N otes :- OV 11.08.2024 Pt. on Cosentyx 150mg and MTX 6 tabs/ week. Pt. educated to take Cosentyx every 4 weeks. Worsening polyarthralgia on Cosentyx 150mg. - OV 05.26.2024: Pt. on Cosentyx and MTX 6 tabs/ week. And also working with electronic funds transfer coordinator and which is helping as well. - OV 04.05.2024: Pt. on Cosentyx, loading dosages. Stopped Methotrexate since starting the Cosentyx in .Pt. to resume MTX at 6 tabs/ week and continue cosentyx. OV 02.23.24 insufficient response to Methotrexate. Adding a bDMARD is needed. Neurological symptoms (abnormal body movements) of unclear origin, pt awaits Neurology eval, will defer TNF blockers for now. OV 01.19.2024: Pt. on MTX and was tolerating well until recently when he had COVID. Medrol dose Gerald given and will continue with MTX. OV 12.08.2023: No evidence of ANCA Associated Vasculitis (normal renal function, normal UA, no chronic sinusitis, no vasculitic skin lesion, no NS involvement). Negative Antiphospholipid antibody panel (neg aCL, [id number], neg LAC). + Psoriasis, HS-CRP elevated. OV 11.17.2023 Recent diagnosis of Psoriasis. Pt. reports ongoing severe polyarthralgia for past 4 years accompanied by prolonged morning stiffness 2 hours and fatigue. Inflammatory atraumatic back pain (improves with activity, not relieved by rest). Daily use of OTC anti- inflammatory, not effective. 3 . P laque psoriasis - L40.0 4 . R heumatoid factor positive - R76.8 S pecify :11.24.2023 RF 10 (H), nl < 6.0; N otes :Despite +RF no rheumatoid arthritis is seen 5 . D isorder of bone density and structure, unspecified - M85.9 ?Specify :DXA NAD Plan: * Treatment: 2. O thers Action Completed - Increase Cosentyx 300mg for PsA no PA needed * Follow Up: 4 Weeks * * Electronic signature of Abby Willson APRN on 02/14/2025 at 02:46 PM EDT Sign off status: Pending * Provider: Olya Willson APRN Date: 0 11/08/2024 Generated for Jesus irene/Mariann/Ian on: 0 02/14/2025 02:46 PM EDT History and Physical Notes * HPI (History of Present Illness) Category Sub-Category Detail Notes Category Not es Rheumatology, Other Demographics 42MW Psoriasis, Psoriatic Ar thritis, Celiac Sprue, + ANCA; , HLA B27 Ag negative, neg ACPA- 12.08.2023 ANCA positive-> Questions: YES Recurrent sinusitis YES Shortness of breath NO Cough NO Elevated serum Creatinine NO Abnormal urinalysis (IF Abnormal urinalysis-> NO Elevated urine RBC NO Proteinuria); NO vasculitic skin rashes NO special organ involvement: NO EYE involvement -episcleritis, scleritis, intermediate uveitis, posterior uveitis, retro-orbital tumor); YES FLAT SURFACER involvement The patient presents with th e following symptoms 11.08.24 Pt last saw PCP Yasmeen Peters MD 11.04.24, lab 03/08/2024, fatigue 12/25 , AMS 2hr+, pain 6-02/24 neck, elbows, hips, hands, knees, feet, QFN TB-Neg 03.08.24, Cosentyx 150 mg for PsA appr until 02/24/2025 ;, Stable on Cosentyx but still have joint pain, last Cosentyx 6.06.11. - Pt. states he has been taking the Cosentyx on the 1st of every month. REports increased hip pain at night. 09/05/2024 PsA: Pt. on Cosentyx 150mg and MTX 6 tabs/ week. Tolerating well. Pt. working with electronic funds transfer coordinator and as of now he is on Keto diet and states its definately helping in controlling the inflammation. -Reviewed DEXA 11.17.2023: Normal 05.26.24 Pt last saw PCP Yasmeen Peters MD , lab 03.08.24, fatigue 9/10 , AMS 2hrs, pain 7-8/10 neck, elbows, hands, knees, ankles,feet, Cosentyx 150 mg for PsA appr until 02/24/2025 ; QFN TB-Neg 03.08.24, last Cosentyx 05.02.24. PsA: Pt. on Cosentyx 150mg and MTX 6 tabs/ week. Tolerating well. Pt. 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 Peters , lab 724, fatigue 10/10, AMS 2hs, pain 8-9/10 hands, RT hip, LT elbow, knees, ankles, feet, CXR 7 NAD. Labs 11.24.2023: Uric acid 8.5 (H), Vit D 24 (L), LAC neg, HS-CRP 3.7 (H), RF 10 (H) DXA 7.: Normal XR R hip 7..2023: Normal XR LS 7..2023: Normal XR R elbow 7..2023: Osteophytes CXR 11.24.23 : NAD CONSULT . [...] COSENTYX, [place] bs review 11.17.23 - h/o [place] (Dr. Jesus Peters), h/o Propranolol 120 mg/d; [...] negative FIBROMYALGIA TENDER POINTS: No diffuse t fast food cook point tenderness allergy GENERAL APPEARANCE: in no [...]
--- OUTSIDE RECORDS SUMMARY | 2025-01-03 06:30 | XMS_ITS ---
Author Organization [facility] Address [address], [place] [id number] Care Team Providers Care Air Quality Consultant Name Role Phone Lorraine LOCKETT, Yasmeen Primary Care Provider JOCELYN Garcia Unavailable [phone] Allergies Allergen (clinical drug ingredient) Drug/Non Drug Allergy documented on EMR Reaction Allergy Type Onset Date Status Wheat wheat (uncoded) swelling, skin rash Allergy Active Results Component Value Reference Range Notes IMMUNOGLOBULIN E Reviewed date:01/13/2025 04:36:06 PM Interpretation: Normal Performing Lab:[facility], [place], [address] [place] [address], [phone] Roby Chávez M.D. Notes/Report: Received Date: NON-FASTING 1 OF 3 LAB ORDERS FASTING:NO FASTING: NO IMMUNOGLOBULIN E 8 <AC=105 kU/L PENICILLIUM NOTATUM (M1) IGE Reviewed date:01/13/2025 04:36:07 PM Interpretation: Normal Performing Lab:[facility], [place], [address] [place] [address], [phone] Roby Chávez M.D. Notes/Report: Received Date: [id number] NON-FASTING 2 OF 3 ORDERS FASTING:NO FASTING: NO PENICILLIUM NOTATUM (M1) IGE <0.10 CLASS 0 HOUSE DUST (TAMAYO) (H1) IGE Reviewed date:01/13/2025 04:36:07 PM Interpretation: Normal Performing Lab:[facility], [place], [address] [place] [address], [phone] Roby Chávez M.D. Notes/Report: Received Date: NON-FASTING 2 OF 3 ORDERS FASTING:NO FASTING: NO HOUSE DUST (TAMAYO) (H1) IGE <0.10 CLASS 0 DERMATOPHAGOIDES PTERONYSSIN US (D1) IGE Reviewed date:01/13/2025 04:36:07 PM Interpretation: Normal Performing Lab:[facility], [place], [address] [place] [address], [phone] Roby Chávez M.D. Notes/Report: Received Date: NON-FASTING 2 OF 3 ORDERS FASTING:NO FASTING: NO DERMATOPHAGOIDES PTERONYSSIN US (D1) IGE <0.10 CLASS 0 SWEET VERNAL GRASS (G1) IGE Reviewed date:01/13/2025 04:36:07 PM Interpretation: Normal Performing Lab:[facility], [place], [address] [place] [address], [phone] Roby Chávez M.D. Notes/Report: Received Date: NON-FASTING 2 OF 3 ORDERS FASTING:NO FASTING: NO SWEET VERNAL GRASS (G1) IGE <0.10 CLASS 0 BERMUDA GRASS (G2) IGE Reviewed date:01/13/2025 04:36:07 PM Interpretation: Normal Performing Lab:[facility], [place], [address] [place] [address], [phone] Roby Chávez M.D. Notes/Report: Received Date: NON-FASTING 2 OF 3 ORDERS FASTING:NO FASTING: NO BERMUDA GRASS (G2) IGE <0.10 CLASS 0 PERENNIAL RYE GRASS (G5) IGE Reviewed date:01/13/2025 04:36:07 PM Interpretation: Normal Performing Lab:[facility], [place], [address] [place] [address], [phone] Roby Chávez M.D. Notes/Report: Received Date: NON-FASTING 2 OF 3 ORDERS FASTING:NO FASTING: NO PERENNIAL RYE GRASS (G5) IGE <0.10 CLASS 0 DANDELION (W8) IGE Reviewed date:01/13/2025 04:36:07 PM Interpretation: Normal Performing Lab:[facility], [place], [address] [place] [address], [phone] Roby Chávez M.D. Notes/Report: Received Date: NON-FASTING 2 OF 3 ORDERS FASTING:NO FASTING: NO DANDELION (W8) IGE <0.10 CLASS 0 MARTINIQUAIS PLANTAIN (W9) IGE Reviewed date:01/13/2025 04:36:07 PM Interpretation: Normal Performing Lab:[facility], [place], [address] [place] [address], [phone] Roby Chávez M.D. Notes/Report: Received Date: NON-FASTING 2 OF 3 ORDERS FASTING:NO FASTING: NO MARTINIQUAIS PLANTAIN (W9) IGE <0.10 CLASS 0 MAPLE (BOX ELDER) (T1) IGE Reviewed date:01/13/2025 04:36:07 PM Interpretation: Normal Performing Lab:1, [place], [address] [place] [address], [phone] Roby Chávez M.D. Notes/Report: Received Date: NON-FASTING 2 OF 3 ORDERS FASTING:NO FASTING: NO MAPLE (BOX ELDER) (T1) IGE <0.10 CLASS 0 BIRCH (T3) IGE Reviewed date:01/13/2025 04:36:07 PM Interpretation: Normal Performing Lab:1, [place], [address] [place] [address], [phone] Roby Chávez M.D. Notes/Report: Received Date: NON-FASTING 2 OF 3 ORDERS FASTING:NO FASTING: NO BIRCH (T3) IGE <0.10 CLASS 0 WALNUT TREE (T10) IGE Reviewed date:01/13/2025 04:36:07 PM Interpretation: Normal Performing Lab:1, [place], [address] [place] [address], [phone] Roby Chávez M.D. Notes/Report: Received Date: NON-FASTING 2 OF 3 ORDERS FASTING:NO FASTING: NO WALNUT TREE (T10) IGE <0.10 CLASS 0 MUGWORT (W6) IGE Reviewed date:01/13/2025 04:36:07 PM Interpretation: Normal Performing Lab:[facility], [place], [address] [place] [address], [phone] Roby Chávez M.D. Notes/Report: Received Date: NON-FASTING 2 OF 3 ORDERS FASTING:NO FASTING: NO MUGWORT (W6) IGE <0.10 CLASS 0 DERMATOPHAGOIDES FARINAE (D2 ) IGE Reviewed date:01/13/2025 04:36:07 PM Interpretation: Normal Performing Lab:NL1, [facility], [address] [place] [address], [phone] Roby Chávez M.D. Notes/Report: Received Date: NON-FASTING 2 OF 3 ORDERS FASTING:NO FASTING: NO DERMATOPHAGOIDES FARINAE (D2 ) IGE <0.10 CLASS 0 INTERPRETATION Specific Level of Allergen IGE Class kU/L Specific IGE Antibody ----- --------- 0 <0.10 Absent/Undetectable 0/1 0.10-0.34 Very Low Level 1 0.35-0.69 Low Level 2 0.70-3.49 Moderate Level 3 3.50-17.4 High Level 4 17.5-49.9 Very High Level 5 50-100 Very High Level 6 >100 Very High Level The clinical relevance of allergen results of 0.10-0.34 kU/L are undetermined and intended for specialist use. Allergens denoted with a include results using one or more analyte specific reagents. In those cases, the test was developed and its analytical performance characteristics have been determined by [facility]. It has not been cleared or approved by the U.S. Food and Drug Administration. This assay has been validated pursuant to the CLIA regulations and is used for clinical purposes. TRESSA GRASS (G6) IGE Reviewed date:01/13/2025 04:36:07 PM Interpretation: Normal Performing Lab:[facility], [place], [address] [place] [address], [phone] Roby Chávez M.D. Notes/Report: Received Date: NON-FASTING 2 OF 3 ORDERS FASTING:NO FASTING: NO TRESSA GRASS (G6) IGE <0.10 CLASS 0 JADON GRASS([place] BLUE) (G 8) IGE Reviewed date:01/13/2025 04:36:07 PM Interpretation: Normal Performing Lab:[facility], [place], [address] [place] [address], [phone] Roby Chávez M.D. Notes/Report: Received Date: NON-FASTING 2 OF 3 ORDERS FASTING:NO FASTING: NO JADON GRASS([place] BLUE) (G 8) IGE <0.10 CLASS 0 CLADOSPORIUM HERBARUM (M2) I GE Reviewed date:01/13/2025 04:36:07 PM Interpretation: Normal Performing Lab:[facility], [place], [address] [place] [address], [phone] Roby Chávez M.D. Notes/Report: Received Date: NON-FASTING 2 OF 3 ORDERS FASTING:NO FASTING: NO CLADOSPORIUM HERBARUM (M2) IGE <0.10 CLASS 0 ALTERNARIA ALTERNATA (M6) IG E Reviewed date:01/13/2025 04:36:07 PM Interpretation: Normal Performing Lab:[facility], [place], [address] [place] [address], [phone] Roby Chávez M.D. Notes/Report: Received Date: NON-FASTING 2 OF 3 ORDERS FASTING:NO FASTING: NO ALTERNARIA ALTERNATA (M6) IGE <0.10 CLASS 0 OAK (T7) IGE Reviewed date:01/13/2025 04:36:07 PM Interpretation: Normal Performing Lab:1, [place], [address] [place] [address], [phone] Roby Chávez M.D. Notes/Report: Received Date: NON-FASTING 2 OF 3 ORDERS FASTING:NO FASTING: NO OAK (T7) IGE <0.10 CLASS 0 COMMON RAGWEED (SHORT) (W1) IGE Reviewed date:01/13/2025 04:36:07 PM Interpretation: Normal Performing Lab:[facility], [place], [address] [place] [address], [phone] Roby Chávez M.D. Notes/Report: Received Date: NON-FASTING 2 OF 3 ORDERS FASTING:NO FASTING: NO COMMON RAGWEED (SHORT) (W1) IGE <0.10 CLASS 0 BELTRAN'S QUARTERS (GOOSE FOOT) (W10) IGE Reviewed date:01/13/2025 04:36:07 PM Interpretation: Normal Performing Lab:[facility], [place], [address] [place] [address], [phone] Roby Chávez M.D. Notes/Report: Received Date: NON-FASTING 2 OF 3 ORDERS FASTING:NO FASTING: NO BELTRNA'S QUARTERS (GOOSE FOOT) (W10) IGE <0.10 CLASS 0 ASPERGILLUS FUMIGATUS (M3) I GE Reviewed date:01/13/2025 04:36:07 PM Interpretation: Normal Performing Lab:1, [place], [address] [place] [address], [phone] Roby Chávez M.D. Notes/Report: Received Date: NON-FASTING 2 OF 3 ORDERS FASTING:NO FASTING: NO ASPERGILLUS FUMIGATUS (M3) IGE <0.10 CLASS 0 MUCOR RACEMOSUS (M4) IGE Reviewed date:01/13/2025 04:36:07 PM Interpretation: Normal Performing Lab:[facility], [place], [address] [place] [address], [phone] Roby Chávez M.D. Notes/Report: Received Date: NON-FASTING 2 OF 3 ORDERS FASTING:NO FASTING: NO MUCOR RACEMOSUS (M4) IGE <0.10 CLASS 0 PARKER ALBICANS (M5) IGE Reviewed date:01/13/2025 04:36:07 PM Interpretation: Normal Performing Lab:1, [place], [address] [place] [address], [phone] Roby Chávez M.D. Notes/Report: Received Date: NON-FASTING 2 OF 3 ORDERS FASTING:NO FASTING: NO PARKER ALBICANS (M5) IGE <0.10 CLASS 0 CULTIVATED RYE GRASS (G12) I GE Reviewed date:01/13/2025 04:36:07 PM Interpretation: Normal Performing Lab:[facility], [place], [address] [place] [address], [phone] Roby Chávez M.D. Notes/Report: Received Date: NON-FASTING 2 OF 3 ORDERS FASTING:NO FASTING: NO CULTIVATED RYE GRASS (G12) IGE <0.10 CLASS 0 GOLDENROD (W12) IGE Reviewed date:01/13/2025 04:36:07 PM Interpretation: Normal Performing Lab:[facility], [place], [address] [place] [address], [phone] Roby Chávez M.D. Notes/Report: Received Date: NON-FASTING 2 OF 3 ORDERS FASTING:NO FASTING: NO GOLDENROD (W12) IGE <0.10 CLASS 0 BEECH (T5) IGE Reviewed date:01/13/2025 04:36:07 PM Interpretation: Normal Performing Lab:[facility], [place], [address] [place] [address], [phone] Roby Chávez M.D. Notes/Report: Received Date: NON-FASTING 2 OF 3 ORDERS FASTING:NO FASTING: NO BEECH (T5) IGE <0.10 CLASS 0 WILLOW (T12) IGE Reviewed date:01/13/2025 04:36:07 PM Interpretation: Normal Performing Lab:[facility], [place], [address] [place] [address], [phone] Roby Chávez M.D. Notes/Report: Received Date: NON-FASTING 2 OF 3 ORDERS FASTING:NO FASTING: NO WILLOW (T12) IGE <0.10 CLASS 0 WHITE PINE (T16) IGE Reviewed date:01/13/2025 04:36:07 PM Interpretation: Normal Performing Lab:[facility], [place], [address] [place] [address], [phone] Roby Chávez M.D. Notes/Report: Received Date: NON-FASTING 2 OF 3 ORDERS FASTING:NO FASTING: NO WHITE PINE (T16) IGE <0.10 CLASS 0 TRYPTASE Reviewed date:01/13/2025 04:36:07 PM Interpretation: Normal Performing Lab:NL1, [facility], [address] [place] [address], [phone] Roby Chávez M.D. Notes/Report: Received Date: NON-FASTING 3 OF 3 ORDERS FASTING:NO FASTING: NO TRYPTASE 3.8 <11.0 mcg/L Medications Medication SIG (Take, Route, Frequency, Duration) Notes Start Date End Date Status Ozempic (1 MG/DOSE) 4 MG/3ML as directed Subcutaneous Act royce Adderall XR 10 MG 1 capsule in the mor josse Orally three time a day Active Ergocalciferol 50,000 IU 1 capsule oral q week Active Methotrexate Sodium 2.5 MG TAKE 6 TABLET S BY MOUTH EVERY WEEK Active Pimecrolimus 1 % 1 application Transmission Tester al Twice a day; Duration: 30 days Active Cosentyx Sensoready Pen 150 MG/ML 300 mg Subcutaneous once every 4 weeks; Duration: 28 days Active Famotidine 40 MG Oral; Duration: 30 Days Active Carbidopa-Levodopa 25-100 MG Oral; Duration: 30 Days Acti ve Folic Acid 1 MG 1 tablet Orally Once a day except on the Methotrexate day; Duration: 90 days Active Cosentyx UnoReady 300 MG/2ML 300 MG Subcutaneous Every 4 weeks; Duration: 28 days 12/08/2024 Active Gabapentin 300 MG Oral; Duration: 30 Days Active Vitamin D (Cholecalciferol) 50 MCG (1999) 1 capsule Orally Once a day Active Problems Problem Type SNOMED Code ICD Code Onset Dates Problem Status W/U Status Risk Notes Problem Idiopathic mast cell activation syndrome (19073564070815 103) 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 Problem Allergic rhinitis (85795132) Rhinitis, allergic (J30.9) Active confirmed Vital Signs Blood pressure systolic 133 mm Hg 01/04/20 25 Blood pressure diastolic 96 mm Hg 025 Heart Rate 96 /min 01/03/2025 Temperature 34.0 C 01/03/2025 Height 184 cm 01/03/2025 Weight 91.3 kg 01/03/2025 BMI 26.96 kg/m2 01/03/2025 Encounters Encounter Location Date Provider Diagnosis [facility] [address] [id number] 01/03/2025 JOCELYN KAWADE 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 and Rhinitis, allergic J30.9 Assessments Encounter Date Diagnosis (ICD Code) Assessment Notes Treatment Notes Treatment Clinical Notes Section Notes 01/03/2025 Idiopathic mast cell activation syndrome (ICD-10 - D89.42) 01/03/2025 Rhinitis, allergic (ICD-10 - J30.9) 01/03/2025 Other 1. Laboratory testing 2. Cetirizine 10mg twice per day (Zyrtec) 3. Famotidine as instructed at night 4. Follow-up after laboratory testing Plan Of Treatment Treatment Notes Assessment Notes Other 1. Laboratory testing 2. Cetirizine 10mg twice per day (Zyrtec) 3. Famotidine as instructed at night 4. Follow-up after laboratory testing Pending Test Test Name Order Date [facility]ERGY REGIONAL PROFILE 01/03/2025 Next Appt Details Provider Name:Louis Willson, 05/05/2025 08:00:00 AM, [address] [place] [address], [phone], Provider Name:JANIS BARLWOWADE, 06/22/2025 09:00:00 AM, [address] [place] [address], [phone], Progress Notes * VIKI OLIVERDOB:1980 (45 yo M)Acc No.[id number]:01/03/2025 Progress Notes Patient: VIKI KEYS Provider: Jose Luis Jane MD, PhD :1980 A ge:44 Y S ex:Male Date:01/03/2025 Address: [facility], [id number] Pcp:Yasmeen Peters MD Subjective: * Chief Complaints: * * Medical History: a rthritis: No, anxiety: [...] Diabetes. S iblings: 2 siblings healthy. C gabrielaen: none. * Medications: T aking Cosentyx Sensoready Pen 150 MG/ML Solution Auto-injector 300 mg Subcutaneous once every 4 weeks , Taking Methotrexate Sodium 2.5 MG Tablet TAKE 6 TABLETS BY MOUTH EVERY WEEK , Taking Ergocalciferol 50,000 IU capsule 1 [...] Taking Gabapentin 300 MG Capsule Oral , Taking Cosentyx UnoReady 300 MG/2ML Solution Auto-injector 300 MG Subcutaneous Every 4 weeks , Taking Folic Acid 1 MG Tablet 1 tablet Orally Once a day except on the Methotrexate day , Taking Carbidopa-Levodopa 25-100 MG Tablet Oral , Taking Famotidine 40 MG Tablet Oral * Allergies: W heat: Swelling, Skin Rash. Objective: * Vitals: B P:133/96mm Hg, HR:96/min, Temp:34.0C, Ht-cm: 184 cm, Wt-k.3 kg, BMI:26.96Index. Assessment: * Assessment: 1. I diopathic mast cell activation syndrome - D89.42 (Primary) 2 . R hinitis, allergic - J30.9 Plan: * Treatment: 2. R maria fernanda, allergic L AB: ALLERGY REGIONAL PROFILE L AB: IMMUNOGLOBULIN E (Collection Date & Time - 01/09/2025 09:21 AM) 3. O thers L AB: PENICILLIUM NOTATUM (M1) IGE (Collection Date & Time - 01/09/2025 09:24 AM) L AB: HOUSE DUST (TAMAYO) (H1) IGE (Collection Date & Time - 01/09/2025 09:24 AM) L AB: DERMATOPHAGOIDES PTERONYSSINUS (D1) IGE (Collection Date & Time - 01/09/2025 09:24 AM) L AB: SWEET VERNAL GRASS (G1) IGE (Collection Date & Time - 01/09/2025 09:24 AM) L AB: BERMUDA GRASS (G2) IGE (Collection Date & Time - 01/09/2025 09:24 AM) L AB: PERENNIAL RYE GRASS (G5) IGE (Collection Date & Time - 01/09/2025 09:24 AM) L AB: DANDELION (W8) IGE (Collection Date & Time - 01/09/2025 09:24 AM) L AB: MARTINIQUAIS PLANTAIN (W9) IGE (Collection Date & Time - 01/09/2025 09:24 AM) L AB: MAPLE (BOX ELDER) (T1) IGE (Collection Date & Time - 01/09/2025 09:24 AM) L AB: BIRCH (T3) IGE (Collection Date & Time - 01/09/2025 09:24 AM) L AB: WALNUT TREE (T10) IGE (Collection Date & Time - 01/09/2025 09:24 AM) L AB: MUGWORT (W6) IGE (Collection Date & Time - 01/09/2025 09:24 AM) L AB: DERMATOPHAGOIDES FARINAE (D2) IGE (Collection Date & Time - 01/09/2025 09:24 AM) L AB: TRESSA GRASS (G6) IGE (Collection Date & Time - 01/09/2025 09:24 AM) L AB: JADON GRASS([place] BLUE) (G8) IGE (Collection Date & Time - 01/09/2025 09:24 AM) L AB: CLADOSPORIUM HERBARUM (M2) IGE (Collection Date & Time - 01/09/2025 09:24 AM) L AB: ALTERNARIA ALTERNATA (M6) IGE (Collection Date & Time - 01/09/2025 09:24 AM) L AB: OAK (T7) IGE (Collection Date & Time - 01/09/2025 09:24 AM) L AB: COMMON RAGWEED (SHORT) (W1) IGE (Collection Date & Time - 01/09/2025 09:24 AM) L AB: BELTRAN'S QUARTERS (GOOSE FOOT) (W10) IGE (Collection Date & Time - 01/09/2025 09:24 AM) L AB: ASPERGILLUS FUMIGATUS (M3) IGE (Collection Date & Time - 01/09/2025 09:24 AM) L AB: MUCOR RACEMOSUS (M4) IGE (Collection Date & Time - 01/09/2025 09:24 AM) L AB: PARKER ALBICANS (M5) IGE (Collection Date & Time - 01/09/2025 09:24 AM) L AB: CULTIVATED RYE GRASS (G12) IGE (Collection Date & Time - 01/09/2025 09:24 AM) L AB: GOLDENROD (W12) IGE (Collection Date & Time - 01/09/2025 09:24 AM) L AB: BEECH (T5) IGE (Collection Date & Time - 01/09/2025 09:24 AM) L AB: WILLOW (T12) IGE (Collection Date & Time - 01/09/2025 09:24 AM) L AB: WHITE PINE (T16) IGE (Collection Date & Time - 01/09/2025 09:24 AM) Notes: 1. Laboratory testing 2. Cetirizine 10mg twice per day (Zyrtec) 3. Famotidine as instructed at night 4. Follow-up after laboratory testing * Labs: * L ab: TRYPTASE (Collection Date & Time - 01/09/2025 09:26 AM) L ab: IMMUNOGLOBULIN E (Collection Date & Time - 01/09/2025 09:21 AM) L ab: SWEET VERNAL GRASS (G1) IGE (Collection Date & Time - 01/09/2025 09:24 AM) ?Lab: BERMUDA GRASS (G2) IGE (Collection Date & Time - 01/09/2025 09:24 AM) * [employer], support 12/17 02:30:06 : This order was created by the Interface. ?Lab: PERENNIAL RYE GRASS (G5) IGE (Collection Date & Time - 01/09/2025 09:24 AM)* [employer], support 12/17 02:30:06 : This order was created by the Interface. ?Lab: TRESSA GRASS (G6) IGE (Collection Date & Time - 01/09/2025 09:24 AM) * [employer], support 12/17 02:30:06 : This order was created by the Interface. ?Lab: JADON GRASS([place]ALL) (G8) IGE (Collection Date & Time - 01/09/2025 09:24 AM)* [employer], support 12/17 02:30:06 : This order was created by the Interface. ?Lab: CULTIVATED RYE GRASS (G12) IGE (Collection Date & Time - 01/09/2025 09:24 AM)* [employer], support 12/17 02:30:07 : This order was created by the Interface. ?Lab: COMMON RAGWEED (SHORT) (W1) IGE (Collection Date & Time - 01/09/2025 09:24 AM)* [employer], support 12/17 02:30:07 : This order was created by the Interface. ?Lab: MUGWORT (W6) IGE (Collection Date & Time - 01/09/2025 09:24 AM)* [employer], support 12/17 02:30:07 : This order was created by the Interface. ?Lab: DANDELION (W8) IGE (Collection Date & Time - 01/09/2025 09:24 AM)* [employer], support 12/17 02:30:07 : This order was created by the Interface. ?Lab: MARTINIQUAIS PLANTAIN (W9) IGE (Collection Date & Time - 01/09/2025 09:24 AM)* [employer], support 12/17 02:30:07 : This order was created by the Interface. ?Lab: BELTRAN'S QUARTERS (GOOSE FOOT) (W10) IGE (Collection Date & Time - 01/09/2025 09:24 AM)* [employer], support 12/17 02:30:07 : This order was created by the Interface. ?Lab: GOLDENROD (W12) IGE (Collection Date & Time - 01/09/2025 09:24 AM)* [employer], support 12/17 02:30:08 : This order was created by the Interface. ?Lab: MAPLE (BOX ELDER) (T1) IGE (Collection Date & Time - 01/09/2025 09:24 AM)* [employer], support 12/17 02:30:08 : This order was created by the Interface. ?Lab: BIRCH (T3) IGE (Collection Date & Time - 01/09/2025 09:24 AM)* [employer], support 12/17 02:30:08 : This order was created by the Interface. ?Lab: BEECH (T5) IGE (Collection Date & Time - 01/09/2025 09:24 AM)* [employer], support 12/17 02:30:08 : This order was created by the Interface. ?Lab: OAK (T7) IGE (Collection Date & Time - 01/09/2025 09:24 AM)* [employer], support 12/17 02:30:08 : This order was created by the Interface. ?Lab: WALNUT TREE (T10) IGE (Collection Date & Time - 01/09/2025 09:24 AM)* [employer], support 12/17 02:30:08 : This order was created by the Interface. ?Lab: WILLOW (T12) IGE (Collection Date & Time - 01/09/2025 09:24 AM)* [employer], support 12/17 02:30:08 : This order was created by the Interface. ?Lab: WHITE PINE (T16) IGE (Collection Date & Time - 01/09/2025 09:24 AM)* [employer], support 12/17 02:30:09 : This order was created by the Interface. ?Lab: PENICILLIUM NOTATUM (M1) IGE (Collection Date & Time - 01/09/2025 09:24 AM)* [employer], support 12/17 02:30:09 : This order was created by the Interface. ?Lab: CLADOSPORIUM HERBARUM (M2) IGE (Collection Date & Time - 01/09/2025 09:24 AM)* [employer], support 12/17 02:30:09 : This order was created by the Interface. ?Lab: ASPERGILLUS FUMIGATUS (M3) IGE (Collection Date & Time - 01/09/2025 09:24 AM)* [employer], support 12/17 02:30:09 : This order was created by the Interface. ?Lab: MUCOR RACEMOSUS (M4) IGE (Collection Date & Time - 01/09/2025 09:24 AM)* [employer], support 12/17 02:30:09 : This order was created by the Interface. ?Lab: PARKER ALBICANS (M5) IGE (Collection Date & Time - 01/09/2025 09:24 AM)* [employer], support 12/17 02:30:09 : This order was created by the Interface. ?Lab: ALTERNARIA ALTERNATA (M6) IGE (Collection Date & Time - 01/09/2025 09:24 AM)* [employer], support 12/17 02:30:09 : This order was created by the Interface. ?Lab: HOUSE DUST (TAMAYO) (H1) IGE (Collection Date & Time - 01/09/2025 09:24 AM)* [employer], support 12/17 02:30:09 : This order was created by the Interface. ?Lab: DERMATOPHAGOIDES PTERONYSSINUS (D1) IGE (Collection Date & Time - 01/09/2025 09:24 AM)* [employer], support 12/17 02:30:10 : This order was created by the Interface. ?Lab: DERMATOPHAGOIDES FARINAE (D2) IGE (Collection Date & Time - 01/09/2025 09:24 AM)* [employer], support 12/17 02:30:10 : This order was created by the Interface. * * Electronic signature of AGUSTIN JANE MD, PhD on 02/14/2025 at 02:46 PM EDT Sign off status: Pending * Provider: Jose Luis Jane MD, PhD Date: 0 01/03/2025 Generated for Jesus irene/Mariann/Pepitoitting on: 0 02/14/2025 02:46 PM EDT
--- OUTSIDE RECORDS SUMMARY | 2025-02-10 04:00 | XMS_ITS ---
Author Organization [facility] Address [address], [place] [id number] Care Team Providers Care Completion Engineer Name Role Phone Lorraine LOCKETT, Yasmeen Primary Care Provider Unavail able JOCELYN JANE Unavailable [phone] Louis Willson Unavailable [phone] Allergies Allergen (clinical drug ingredient) Drug/Non Drug Allergy documented on EMR Reaction Allergy Type Onset Date Status Wheat wheat (uncoded) swelling, skin rash Allergy Active REASON FOR VISIT Pt last saw PCP Yasmeen Peters MD , lab 7.14.25, fatigue 8/10 , AMS 2HRS+, pain 8-9/10 neck/shoulders, hands, knees, ankles/feet, Increase Cosentyx 300mg for PsA no PA needed ;, last Cosentyx 9.15.25 - still tolerating it Medications Medication SIG (Take, Route, Frequency, Duration) Notes Start Date End Date Status Ozempic (1 MG/DOSE) 4 MG/3ML as directed Subcutaneous Act royce Cosentyx UnoReady 300 MG/2ML 300 MG Subcutaneous Every 4 weeks; Duration: 28 days 12/08/2024 Active Folic Acid 1 MG 1 tablet Orally Once a day except on the Methotrexate day Active Adderall XR 10 MG 1 capsule in the mor josse Orally three time a day Active Ergocalciferol 50,000 IU 1 capsule oral q week Active Carbidopa-Levodopa 25-100 MG Oral; Duration: 30 Days Acti ve Methotrexate Sodium 2.5 MG TAKE 6 TABLET S BY MOUTH EVERY WEEK Active Gabapentin 300 MG Oral; Duration: 30 Days Active Famotidine 40 MG Oral; Duration: 30 Days Active Pimecrolimus 1 % 1 application Improvement Advisor al Twice a day; Duration: 30 days Active Vitamin D (Cholecalciferol) 50 MCG (1999) 1 capsule Orally Once a day Active Problems Problem Type SNOMED Code ICD Code Onset Dates Problem Status W/U Status Risk Notes Problem Psoriatic arthritis (638059275) Psoriatic arthritis (L40.50) Active confirmed - OV 02.10.2025 Pt. on Cosentyx 300mg every 4 weeks and MTX 6 tabs/ week. Helping and tolerating. Having issues receiving the meds from his pharmacy. - OV 11.08.2024 Pt. on Cosentyx 150mg and MTX 6 tabs/ week. Pt. educated to take Cosentyx every 4 weeks. Worsening polyarthralgia on Cosentyx 150mg., started . - OV 05.26.2024: Pt. on Cosentyx and MTX 6 tabs/ week. And also working with cmm operator and which is helping as well. - [...] involvement). Negative Antiphospholipid antibody panel (neg aCL, [id number], neg LAC). + Psoriasis, HS-CRP elevated. OV . Recent diagnosis of Psoriasis. Pt. reports ongoing severe polyarthralgia for past 4 years accompanied by prolonged morning stiffness 2 hours and fatigue. Inflammatory atraumatic back pain (improves with activity, not relieved by rest). Daily use of OTC anti-inflammatory , not effective. Problem Plaque psoriasis (118147810) Plaque psoriasis (L40.0) Active confirmed Problem C-reactive protein abnormal (285412191) Elevated C-reactive protein (CRP) (R79.82) Active confirmed Vital Signs Blood pressure systolic 115 mm Hg 02/11/20 25 Blood pressure diastolic 75 mm Hg 025 Heart Rate 81 /min 02/10/2025 Temperature 37.2 C 02/10/2025 Height 184 cm 02/10/2025 Encounters Encounter Location Date Provider Diagnosis [facility] [address], [place] [id number] 02/10/2025 Katiffany Willson Psoriatic arthritis L40.50 ; Celiac disease K90.0 ; Plaque psoriasis L40.0 ; Rheumatoid factor positive R76.8 ; Disorder of bone density and structure, unspecified M85.9 and Elevated C-reactive protein (CRP) R79.82 Assessments Encounter Date Diagnosis (ICD Code) Assessment Notes Treatment Notes Treatment Clinical Notes Section Notes 02/10/2025 Psoriatic arthritis (ICD-10 - L40.50) - OV 02.10.2025 Pt. on Cosentyx 300mg every 4 weeks and MTX 6 tabs/ week. Helping and tolerating. Having issues receiving the meds from his pharmacy. - OV 11.08.2024 Pt. on Cosentyx 150mg and MTX 6 tabs/ week. Pt. educated to take Cosentyx every 4 weeks. Worsening polyarthralgia on Cosentyx 150mg., started . - OV 05.26.2024: Pt. on Cosentyx and MTX 6 tabs/ week. And also working with cmm operator and which is helping as well. - [...] involvement). Negative Antiphospholipid antibody panel (neg aCL, [id number], neg LAC). + Psoriasis, HS-CRP elevated. OV 7.2.2023 Recent diagnosis of Psoriasis. Pt. reports ongoing severe polyarthralgia for past 4 years accompanied by prolonged morning stiffness 2 hours and fatigue. Inflammatory atraumatic back pain (improves with activity, not relieved by rest). Daily use of OTC anti-inflammatory , not effective. Labs now. Continue Methotrexate at 6 tabs/week Take Cosentyx 300mg - anytime Now starting from next dose. every 4 weeks C-spine XR, (B) shoulder XR. - PT [...] in 3 months or sooner if needed. - May consider Tremfya - Pt. defers switching at this time also needs Appt. with Dr. Durand 02/10/2025 Celiac disease (ICD-10 - K90.0) 02/10/2025 Plaque psoriasis (ICD-10 - L40.0) 02/10/2025 Rheumatoid factor positive (ICD-10 - R76.8) Despite +RF no rheumatoid arthritis is seen 02/10/2025 Disorder of bone density and structure, unspecified (ICD-10 - M85.9) 02/10/2025 Elevated C-reactive protein (CRP) (ICD-10 - R79.82) Plan Of Treatment Medication Medication Name Sig Start Date Stop Date Notes Cosentyx UnoReady 300 MG/2ML 300 MG Subc utaneous Every 4 weeks; Duration: 28 days 12/08/2024 Folic Acid 1 MG 1 tablet Orally Once a day except on the Methotrexate day Methotrexate Sodium 2.5 MG TAKE 6 TABLET S BY MOUTH EVERY WEEK Treatment Notes Assessment Notes Psoriatic arthritis Labs now. Continue Methotrexate at 6 tabs/week Take Cosentyx 300mg - anytime Now starting from next dose. every 4 weeks C-spine XR, (B) shoulder XR. - PT [...] in 3 months or sooner if needed. - May consider Tremfya - Pt. defers switching at this time also needs Appt. with Dr. Durand Pending Test Test Name Order Date QUANTIFERON(R)-TB GOLD 02/10/2025 HEPATIC FUNCTION PANEL 02/10/2025 CREATININE 02/10/2025 CBC (INCLUDES DIFF/PLT) 02/10/2025 SED RATE BY MODIFIED WESTERGREN 02/11/20 25 Next Appt Details Follow Up: 3 Months, Reason: Provider Name:Louis Willson, 05/05/2025 08:00:00 AM, [address] [place] [address], [id number], Provider Name:JANIS JANE, 06/22/2025 09:00:00 AM, [address] [place] [address], [phone], Progress Notes * VIKI OLIVERDOB:1980 (45 yo M)Acc No.[id number]:02/10/2025 Progress Notes Patient: Keron BONIFACIOVIKI Provider: Olya Willson APRN :1980 A ge:45 Y S ex:Male Date:02/10/2025 Address: [address], [id number] Pcp:Yasmeen Peters MD Subjective: * Chief Complaints: * 1 . Pt last saw PCP Yasmeen Peters MD . 2. Lab 11.28.24. 3. fatigue 8/10 , AMS 2HRS+. 4. Pain 8-9/10 neck/shoulders, hands, knees, ankles/feet. 5. Increase Cosentyx 300mg for PsA no PA needed ;. 6. last Cosentyx 01.30.25 - still tolerating it. * HPI: R heumatology, Other: Demographics 4 2MW Psoriasis, Psoriatic Arthritis +hsC-RP 12.4H in , Celiac Sprue, + ANCA; , HLA B27 Ag negative, neg ACPA-. The patient presents with the following symptoms PsA:?11.08.24 ? Pt last saw PCP Yasmeen Woody se, MD 11.04.24, lab 03/08/2024, fatigue 8/10 , AMS 2hr+, pain 6-10/10 neck, elbows, hips, hands, knees, feet, QFN TB-Neg 03.08.24, Cosentyx 150 mg for PsA appr until 02/24/2025 ;, Stable on Cosentyx but still have joint pain, last Cosentyx 6... - Pt. states he has been taking the Cosentyx on the 1st of every month. REports increased hip pain at night.?09/05/2024 ?PsA:?Pt. on Cosentyx 150mg and MTX 6 tabs/ week. Tolerating well. Pt. working with cmm operator and as of now he is on Keto diet and states its definately helping in controlling the inflammation.?-Reviewed?DEXA 11.17.2023:?Normal ?01.02.09 ?Pt last saw PCP Yasmeen Peters MD , lab 03.08.24, fatigue 10 , AMS 2hrs, pain 7-8/10 neck, elbows, hands, knees, ankles,feet, Cosentyx 150 mg for PsA appr until 02/24/2025 ; QFN TB-Neg 03.08.24, last Cosentyx 05.02.24. ?PsA:Pt. on Cosentyx 150mg and MTX 6 tabs/ week. Tolerating well. Pt. working with cmm operator and as of now he is on Keto diet and states its definately helping in controlling the inflammation.?04.05.24??Pt last saw PCP Yasmeen Peters MD 02/2024, lab 03.08.24, fatigue 02/24, AMS 2hrs, pain 5-7/10 neck, elbows, hips, [...] Pneumonia in , tx w/ABx, steroids. IgA undetectable.?9.3.2023 ?Pt last saw PCP Dr. Peters , lab 11.24.23, fatigue 10/10 , AMS 2hr+, pain 2-10shoulders, elbows, hands, RT hip, knees, ankles, feet, Neurologist; waiting for the referral to be sent. ?PsA:Pt. on MTX. Pt. states he was doing really well but he got COVID 2.5 weeks ago and since had been having increased fatigue and some worsening Psoriasis. Pt. did not end up taking the Paxlovid. Still experiencing cough and fatigue.?7. ?Pt last saw PCP Dr. Peters , lab 11.24.23, fatigue /10, AMS 2hs, pain 8-01/25 hands, RT hip, LT elbow, knees, ankles, feet, CXR 11.24.23 NAD. ?Labs 11.24.2023:?Uric acid 8.5 (H), Vit D 24 (L), LAC neg, HS-CRP 3.7 (H), RF 10 (H) ?DXA 11.17.2023:Normal ?XR R hip 11.17.2023:Normal ?XR LS 11.17.2023:Normal ?XR R elbow 11.17.2023:Osteophytes ?CXR 11.24.23?: NAD ?CONSULT 11.17.2023???Pt was last seen by PMD Yasmeen Peters MD 10/2023, Fatigue 01/25, AMS 2hrs, pain 7-01/25 neck, elbow, hands, [...] Sclerosis..?Medications Include?COSENTYX, ?Labs review 11.17.23 - h/o [place] (Dr. Jesus Peters), h/o Propranolol 120 mg/d; ?, METHOTREXATE 11/2023.?Laboratory results include?11.24.2023: Uric acid 8.5 (H), Vit D 24 (L), LAC neg, HS-CRP 3.7 (H), RF 10 (H).?Diagnostic Imaging Includes?CXR 11.24.23 NAD.? 12.08.2023 ANCA positive-> Questions: YES Recurrent sinusitis YES Shortness of breath NO Cough NO Elevated serum Creatinine NO Abnormal urinalysis (IF Abnormal urinalysis-> NO Elevated urine RBC NO Proteinuria); NO vasculitic skin rashes NO special organ involvement: NO EYE involvement -episcleritis, scleritis, intermediate uveitis, posterior uveitis, retro-orbitaltumor); YES ORCHESTRA DIRECTOR involvement. * ROS: R heumatology: Fatigue Y es. F ever N o. C hills N o. N ight Sweats Y es. W eight Loss N o. H ands change color in the cold Y es. D ry Eyes Y es. D ry Mouth Y es. S tiffness in AM Y es. J aw pain or tired when chewing N o. H eadaches Y es. P ain in eyes N o. R edness in eyes Y es. B lurred or Double Vision N o. F loaters Y es. F lashes Y es. H air Loss that left bald patch behind N o. M outh ulcers Y es. N nanette Ulcers N o.?Frequent sore throat Y es. L ymphadenopathy N o. C hest pain N o. S hortness of breath Y es. C ough Y es. C oughing up Blood N o. H [...] infection Y es. R ecurrent ear infection N o. B leeding gums N o. P soriasis [...] ears N o. L oss of hearing Y es. H eight loss N o. H eart murmur N o. B lood in stool N o. H eel pain Y es. F faheem without infection N o. D iscomfort or pain in BUTTOCK N o. W eight GAIN N o. * Medical History: a rthritis: No, anxiety: [...] Diabetes. S iblings: 2 siblings healthy. C natasha: none. * Medications: T aking Cosentyx UnoReady 300 MG/2ML Solution Auto-injector 300 MG Subcutaneous Every 4 weeks , Taking Methotrexate Sodium 2.5 [...] , Taking Vitamin D (Cholecalciferol) 50 MCG (1999) Capsule 1 capsule Orally Once a day , Taking Gabapentin 300 MG Capsule Oral , Taking Carbidopa-Levodopa 25-100 MG Tablet Oral , Taking Famotidine 40 MG Tablet Oral , Discontinued Cosentyx Sensoready Pen 150 MG/ML Solution Auto-injector 300 mg Subcutaneous once every 4 weeks * Allergies: W heat: Swelling, Skin Rash. Objective: * Vitals: B P:115/75mm Hg, HR:81/min, Temp:37.2C, Ht-cm: 184 cm. * Examination: a llergy: GENERAL APPEARANCE: [...] HLA B27 Ag. N otes :- OV 02.10.2025 Pt. on Cosentyx 300mg every 4 weeks and MTX 6 tabs/ week. Helping and tolerating. Having issues receiving the meds from his pharmacy. - OV 11.08.2024 Pt. on Cosentyx 150mg and MTX 6 tabs/ week. Pt. educated to take Cosentyx every 4 weeks. Worsening polyarthralgia on Cosentyx 150mg., started . - OV 1.: Pt. on Cosentyx and MTX 6 tabs/ week. And also working with cmm operator and which is helping as well. - [...] involvement). Negative Antiphospholipid antibody panel (neg aCL, [id number], neg LAC). + Psoriasis, HS-CRP elevated. OV [...] heumatoid factor positive - R76.8 S pecify :7. RF 10 (H), nl < 6.0; N otes :Despite +RF no rheumatoid arthritis is seen 5 . D isorder of bone density and structure, unspecified - M85.9 ?Specify :DXA NAD 6 . E levated C-reactive protein (CRP) - R79.82 S pecify :+hsC-RP 12.8H in ; normalized per labs , since on Cosentyx; Plan: * Treatment: ?LAB: HEPATIC FUNCTION PANEL* Louis Willson 02/10/2025 08 :26:57 AM EDT > fasting, in 3 months, cc patient, PMD ?LAB: CREATININE* Louis Willson 02/10/2025 08 :26:57 AM EDT > fasting, in 3 months, cc patient, PMD ?LAB: CBC (INCLUDES DIFF/PLT)* Louis Willson 02/10/2025 08 :26:57 AM EDT > fasting, in 3 months, cc patient, PMD ?LAB: SED RATE BY MODIFIED WESTERGREN* Louis Willson 02/10/2025 08 :26:57 AM EDT > fasting, in 3 months, cc patient, PMD Notes: Labs now. Continue Methotrexate at 6 tabs/week Take Cosentyx 300mg - anytime Now starting from next dose. every 4 weeks C-spine XR, (B) shoulder XR. - PT [...] contraindications to any inactivated (killed) vaccines. All Covid- 19 vaccines are inactivated vaccines. Avoid live vaccines. Follow up with your PMD re: age appropriate vaccinations. Annual screening for tuberculosis with either a blood test (Quantiferon TB Gold) or PPD is advised when treated with Cosentyx. Return for Office visit in 3 months or sooner if needed. - May consider Tremfya - Pt. defers switching at this time also needs Appt. with Dr. Durand?? * Follow Up: 3 Months * * Electronic signature of Abby Willson APRN on 02/14/2025 at 02:46 PM EDT Sign off status: Pending * Provider: Olya Willson APRN Date: 02/10/2025 Generated for Jesus irene/Mariann/Ian on: 02/14/2025 02:46 PM EDT History and Physical Notes * HPI (History of Present Illness) Category Sub-Category Detail Notes Category Not es Rheumatology, Other Demographics 42MW Psoriasis, Psoriatic Ar thritis +hsC-RP 12.4H in 10.2024, Celiac Sprue, + ANCA; , HLA B27 Ag negative, neg ACPA- 12.08.2023 ANCA positive-> Questions: YES Recurrent sinusitis YES Shortness of breath NO Cough NO Elevated serum Creatinine NO Abnormal urinalysis (IF Abnormal urinalysis-> NO Elevated urine RBC NO Proteinuria); NO vasculitic skin rashes NO special organ involvement: NO EYE involvement -episcleritis, scleritis, intermediate uveitis, posterior uveitis, retro-orbital tumor); YES ORCHESTRA DIRECTOR involvement The patient presents with th e following symptoms 02.10.2025 Pt last saw PCP Yasmeen Peters MD , lab 11.28.24, fatigue 8/10 , AMS 2HRS+, pain 8-9/10 neck/shoulders, hands, knees, ankles/feet, Increase Cosentyx 300mg for PsA no PA needed ;, last Cosentyx 01.30.25 - still tolerating it.PsA: 11.08.24 Pt last saw PCP Yasmeen Peters MD 11.04.24, lab 03/08/2024, fatigue 8/10 , AMS 2hr+, pain 6-10/10 neck, elbows, hips, hands, knees, feet, QFN TB-Neg 03.08.24, Cosentyx 150 mg for PsA appr until 02/24/2025 ;, Stable on Cosentyx but still have joint pain, last Cosentyx 10.16.24. - Pt. states he has been taking the Cosentyx on the 1st of every month. REports increased hip pain at night. 09/05/2024 PsA: Pt. on Cosentyx 150mg and MTX 6 tabs/ week. Tolerating well. Pt. working with cmm operator and as of now he is on [...] tabs/ week. Tolerating well. Pt. working with cmm operator and as of now he is on [...] (H) DXA 7.: Normal XR R hip 7.: Normal XR LS 7.: Normal XR R elbow 7.: Osteophytes CXR 11.24.23 : NAD CONSULT . Pt was last seen by PMD Yasmeen Peters MD 10/2023, Fatigue 01/25, AMS 2hrs, pain 7-9/10 neck, elbow, hands, [...] COSENTYX, La bs review 11.17.23 - h/o [place] (Dr. Jesus Peters), h/o Propranolol 120 mg/d; [...] normal range of motion, R elbow tenderness, WillsonThierry loaizamario 12/08/2023 02:50:27 PM EDT > WRISTS: (B)wrist [...] negative FIBROMYALGIA TENDER POINTS: No diffuse t third rigger point tenderness allergy GENERAL APPEARANCE: in no [...]
--- NOTE | 2025-02-14 13:47 | A.OFFVIS_ITS ---
Vital Signs 02/14/25 13:53 Height 6 ft Weight 197 lb 6 oz BMI 26.8 BP 112/80 Blood Pressure Location Rt brachial Position Sitting Pulse 90 Pulse Source Pulse Oximeter Pulse Oximetry (%) 96 Oxygen Delivery Method Room Air Intake Visit Reasons: Xeomin Intake Note: Xeomin Assistant Professor Of Art Required: No Accompanied by: Self / Same As Patient Allergies No Known Allergies Allergy (Verified 02/14/25 13:48) Medication List - Last Reconciled 02/14/25 by Mackenzie Perez MD blood-glucose sensor (Dexcom G7 Sensor device) As directed blood-glucose transmitter (Dexcom G6 Transmitter device) As directed blood-glucose,reed maker,cont (Dexcom G6 Mortgage Loan Reviewer) As directed carbidopa-levodopa 25-100 mg 1 tab PO BEDTIME clonazepam 1 mg PO BEDTIME dextroamphetamine-amphetamine 10 mg (Adderall) 10 mg PO ONCE famotidine 40 mg PO QPM folic acid 1 mg PO DAILY gabapentin 900 mg (3 x 300 mg) PO BEDTIME incobotulinumtoxinA (Xeomin) 200 units IM ONCE 3 months methotrexate sodium 2.5 mg PO QWEEK pimecrolimus 1% appl topical BID secukinumab (Cosentyx) 150 mg subcut Q4W semaglutide (Ozempic) 1 mg subcut QWEEK HPI Comments Details: 45y/o male comes for treatment of his cervical dystonia ? Side effects including spread of toxin effect, dysphagia, breathing difficulties , bronchitis etc was discussed in detail and the patient agreed to the procedure.An informed consent was obtained ??? Botulinum toxin type A 200units X 1 -was diluted with 4 cc of normal saline at a concentration of 25 units in 0.5cc saline. Lot number [id number] expiration 06/2026 ??? Muscles injected ??? Arnoldo Splenius - 25 units each ??? Arnoldo levator 50 units each ??? BilTrapezius 25units each ??? Total used 200 units [facility] Medical History Spasmodic torticollis Neck pain Hypersomnia Snoring Restless legs syndrome (RLS) Tremors of nervous system Benign head tremor Bradshaw's palsy ADD (attention deficit disorder) Anxiety Vitamin D deficiency Psoriatic arthritis Depression Surgical History History of appendectomy Family History Mother HTN (hypertension) COPD (chronic obstructive pulmonary disease) Paternal Grandfather Parkinsons disease Maternal Grandmother Diabetes Maternal Grandfather Diabetes Physical Exam Vital Signs: Last Vital Signs Pulse 90 02/14/25 13:53 BP 112/80 02/14/25 13:53 Pulse Ox 96 02/14/25 13:53 Oxygen Delivery Method Room Air 02/14/25 13:53 BMI result Body Mass Index 26.8 Const General: cooperative and comfortable Nutritional Appearance: average body habitus Orientation/consciousness: patient oriented x3 HEENT Head: Yes normal to inspection and Yes normocephalic Neck Neck: Yes no meningeal signs Neuro Other: Neck tightness with decreased range of motion , tenderness in lateral neck muscles very mild Head tremors - arrhythmic movements - side to side- less compared to before Speech- normal ( nasal tone) Mild right postural tremors FFM and foot taps normal slow but normal gait - can tandem Mallampatti grade 4 General: patient oriented x3, tone normal, moves all extremities, no meningeal signs and no focal motor deficits Cranial nerves: Yes Nystagmus not present, Yes Normal facial strength present and Yes Symmetric palate elevation present Cognition (Neuro): normal cognition Motor exam (neuro): 5/5 motor strength present throughout and Normal motor muscle tone present throughout Coordination: [id number] test normal Psych Appearance: grossly normal Mental Status: mental status grossly normal Speech and movement: Normal speech and movement present Affect: normal affect Office Procedures Botulinum toxin Injection 54951 - Dystonia Procedure code (CPT) selection complete Office Meds incobotulinumtoxinA 200 unit intramuscular solution Performing Provider: Mackenzie Perez MD Performing Location: [facility] Administered by: Mackenzie Perez MD on 02/14/25 14:15 Dose Route Admin Location Dispensed Lot Number Expiration Date [facility] Senior Asic Engineer 200 unit IM 200 units [id number] JOSEFINA Total Dispensed Waste 200 units 0 % Comments: see HPI Assessment & Plan Assessment & Plan (1) Spasmodic torticollis: Code(s): G24.3 - Spasmodic torticollis Category: Medical (2) 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 related to lithium exposure Code(s): G25.0 - Essential tremor Category: Medical Plan Patient tolerated the procedure well He will call with any side effects Orders: Orders AMB Botulinum toxin Injection - Patient Supplied N/C Today G24.3 - Spasmodic torticollis Coding Level of Care Code Est Pt Level 1 (03192) Diagnoses Spasmodic torticollis G24.3 Benign head tremor G25.0 CPT Codes Botox Injection - Botox 4: 48688 - Dystonia ([id number])
[2025-02-14 13:53] VITALS: BP 112/80; PULSE 90; O2SAT 96; BMI 26.8
--- OUTSIDE RECORDS SUMMARY | 2025-02-14 14:46 | XMS_ITS | Clinical Summary ---
Author Organization [facility] Address [address] [place] [address] Phone Care Team Providers Care Cds Sales Advisor Name Role Phone Yasmeen Peters MD Primary Care Provider [phone] Social History Tobacco Use Types Packs/Day Years Used Date Smoking Tobacco: Never Assessed Sex and Gender Information Value Date Recorded Sex Assigned at Not on file Legal Sex Male 10:14 PM EDT Gender Identity Not on file Sexual Orientation Not on file Plan of Treatment Health Maintenance Due Date Last Done Comments HIV screening 1994 Hepatitis C screening 1999 Tetanus adult (Td q 10,TDAP once) 2001 Lipid disorder screening 2021 Influenza vaccine 12/16/2024 Covid-19 vaccine series ( - 2023- season) 2025 RSV Immunization (1 - 1-dose 75+ series) 01/11/2056 Meningococcal B Vaccine Aged Out No l onger eligible based on patient's age to complete this topic Meningococcal Vaccine Aged Out No jazmin antonio eligible based on patient's age to complete this topic Pneumococcal Vaccine (2 - 49 years) Aged Out No longer eligible based on patient's age to complete this topic Care Teams Cds Sales Advisor Relationship Specialty [place] [address] [place] [phone] PCP - General Psychiatry 03/22/24
--- OUTSIDE RECORDS SUMMARY | 2025-02-14 14:47 | XMS_ITS | Clinical Summary ---
Author Organization [facility] Address [address] [place] [address] Care Team Providers Care Pulp Mill Operator Name Role Phone Ozzy Burden MD Primary Care Provider [phone] Allergies Active Allergy Reactions Criticality Noted Date [...] Td or Tdap) 10/06/2018 10/06/2008 COVID-19 Vaccine (1 - 2023-2 5 season) 2025 Influenza (#1) 2025 Zoster (Shingrix) (1 of 2) 2031 HPV Vaccine (No Doses Required) Completed Hep A Aged Out No longer eligi ble based on patient's age to complete this topic Hib Aged Out No longer eligi ble based on patient's age to complete this topic Meningococcal ACWY Aged Out No longer eligible based on patient's age to complete this topic Pneumococcal Aged Out No longer eligi ble based on patient's age to complete this topic Care Teams Pulp Mill Operator Relationship Specialty Start Date End Date Ozzy Burden MD [address] [place] [address] [facility] - General 12/22/22
--- OUTSIDE RECORDS SUMMARY | 2025-02-14 14:47 | XMS_ITS | Clinical Summary ---
Author Organization [facility] Address [address] [place] [address] Care Team Providers Care Supervisor Road Administrator Name Role Phone HussainJess lopez Jorge GOMEZ [...] age to complete this topic Care Teams Supervisor Road Administrator Relationship Specialty Start Date End Date Jess Nixon APRN PCP - General Internal Medicine 11/17/19
--- OUTSIDE RECORDS SUMMARY | 2025-02-14 14:47 | XMS_ITS | Clinical Summary ---
Author Organization [facility] Address [address] [place] [id number] Care Team Providers Care Six Pack Packer Name Role Phone Yasmeen Peters MD Primary Care Provider [phone] Allergies No known active allergies Medications propranolol [...] tablet 5 0 Active ergocalciferol (VITAMIN D2,DRISDOL) 67518 units CapIndications: Vitamin D deficiency TAKE 1 [...] 04/15/2020 Irritable bowel syndrome with diarrhea 0 Encounters Date Type Department Care Team Description 12/13/2024 Telephone [facility] [place] [address] Staci Lazaro MA 12/08/2024 Transcribe Orders [facility] [address] [place] [address] Unknown Dysphagia, unspecified type (Primary Dx) from Last 3 Months Family History Medical History Relation Name Comments [...] (1 of 3 - 19+ 3-dose series) 12/17 Pneumococcal Vaccine: Pediat caitlin (0-5 Years) and At-Risk Patients (6 to 49 Years) (1 of 2 - PCV) 01/11/2000 Influenza Vaccine 12/16/2024 COVID-19 Vaccine (2 - season) 2025 HIV Screening Completed 02/23/2020 Hepatitis C Virus Screening Completed 02/23/2020 HPV Vaccines (No Doses Required) Completed Procedures Procedure Name Priority Date/Time Associated Diagnosis [...] Ag/Ab, 4th Gen NON-REACT ANEUDY NON-REACT ANEUDY [facility] Comment: HIV-1 antigen and HIV-1/HIV-2 [...] purpose. For additional information please refer to http://[employer].Natural Convergence/faq/XKA968 (This link is being provided for informational/ [...] Performing Organization Information: Site ID: [id number] Name: [facility] Address: [address] [place] [address], [place] [address] Director: Roby Chávez MD Jess Nixon APRN LAB BLOOD ORDERABLES Final Result [facility] [address] [place] [address], [place] [address] * Hepatitis C Virus (HCV) Antibody (02/23/2020 12:53 PM EDT) Hepatitis C Antibody NON-REACT ANEUDY NON-REACT ANEUDY [facility] Hepatitis C Antibody (s/co) 0.01 <1.00 [facility] Comment: HCV antibody was non-reactive. There is no laboratory evidence of HCV infection. In most cases, no further action is required. However, if recent HCV exposure is suspected, a test for HCV RNA (test code 57437) is suggested. For additional information please refer to http://[employer].CommScope.Qnekt/faq/VCS95q1 (This link is being provided for informational/ educational purposes only.) Blood specimen (specimen) 02/23/2020 12:53 PM EDT 02/23/2020 12:55 PM EDT Narrative [facility] - 02/24/2020 9:58 AM EDT FASTING:YES COLLECTION KIT GIVEN TO PATIENT. PATIENT ADVISED TO RETURN. FASTING: YES Resulting Agency Comment Performing Organization Information: Site ID: [id number] Name: [facility] Address: [address], [place] [address] Director: Roby Chávez MD Jess Nixon APRN LAB BLOOD ORDERABLES Final Result [facility] [address], [place] [address] from Last 3 Months or Most Recently Relevant to Health Maintenance Insurance [email or web address] [address] [email or web address] [place] PPO [facility] - PPO [facility] PPO Care Teams Six Pack Packer Relationship Specialty Start Date End Date Yasmeen Peters MD [address] [place] [address] PCP - General Psychiatry, General 03/07/24
--- OUTSIDE RECORDS SUMMARY | 2025-02-14 14:47 | XMS_ITS | Encounter Summary ---
Author Organization [facility] Address [address] [place] [address] Care Team Providers Care Communications Instructor Name Role Phone Jess Nixon APRN Primary Care Provider [phone] Jess Nixon APRN Unavailable [phone] Yasmeen Peters MD Primary Care Provider [phone] Encounter Details Date Type Department Care Team (Late st Contact Info) Description 09/28/2020 Scanned Document [facility] Primary Care, Scan Social History Tobacco Use Types Packs/Day Years [...] on file Sexual Orientation Not on file documented as of this encounter Plan of Treatment Not on file documented as of this encounter Visit Diagnoses Not on filedocumented in this encounter Care Teams Communications Instructor Relationship Specialty Start Date End Date Jess Nixon APRN PCP - General Internal Medicine 01/16/20 03/29/23 Jess Nixon APRN [address] [place] [id number] PCP - Twilight [employer] Attributed 07/16/20 12/15/20 Yasmeen Peters MD [address] [place] [address] PCP - General Psychiatry, General 03/07/24 documented as of this encounter
--- OUTSIDE RECORDS SUMMARY | 2025-02-14 14:47 | XMS_ITS | Clinical Summary ---
Author Organization [facility] [email or web address] [facility] Address [address] [facility] [address] [place] [address] Care Team Providers Care Pattern Ruler Name Role Phone Unavailable Primary Care Provider [...] Adults 18 yrs or above (or HM Modifier)([facility]) 1999 Hepatitis C Virus Infection in Adolescents and Adults: Screening (or Modifier) ([facility]) 1999 SDIA Screening Reminder: Kisha menard for all adults ([facility]) 1999 Tobacco Smoking Cessation: i n Adults excluding Women: Behavioral and Pharmacotherapy Interventions ([facility]) 1999 DTaP/Tdap/Td Vaccines ([facility]) (1 - Tdap) 01/11/2000 Flu Vaccination: Yearly for ages 18mos through 64 years (or Modifier)([facility]) 12/16/2024 COVID-19 Vaccine Screening: Initial Series and Booster Status ([facility]) ( - season) 2025 Zoster/Shingles Vaccine Seri es Screening: Adults aged 18+ yrs (or HM Modifiers)([facility]) (1 of 2) 2031 Pneumococcal Vaccination Scr eening: Pts 0-19 & 19-49 yrs of age ([facility]) Aged Out No longer eligible based on patient's age to complete this topic Medical Devices Not on file
--- OUTSIDE RECORDS SUMMARY | 2025-02-14 14:47 | XMS_ITS | Patient Health Record ---
Author Organization [facility] Address [address], [place] [id number] Care Team Providers Care Rcp Name Role Phone Lorraine LOCKETT, Yasmeen Primary Care Provider Unavail able JOCELYN JANE Unavailable [phone] JANIS JANE Unavailable [phone] Naila Ramos Unavailable [phone] Louis Willson Unavailable [phone] Allergies Allergen (clinical drug ingredient) Drug/Non Drug Allergy documented on EMR Reaction Allergy Type Onset Date Status Wheat wheat (uncoded) swelling, skin rash Allergy Active Results Component Value Reference Range Notes IMMUNOGLOBULIN E Reviewed date:01/13/2025 04:36:06 PM Interpretation: Normal Performing Lab:[facility], [facility], [address] [place] [address], [phone] Roby Chávez M.D. Notes/Report: Received Date: NON-FASTING 1 OF 3 LAB ORDERS FASTING:NO FASTING: NO IMMUNOGLOBULIN E 8 <IT=179 kU/L PENICILLIUM NOTATUM (M1) IGE Reviewed date:01/13/2025 04:36:07 PM Interpretation: Normal Performing Lab:[facility], [facility], [address] [place] [address], [phone] Roby Chávez M.D. Notes/Report: Received Date: NON-FASTING 2 OF 3 ORDERS FASTING:NO FASTING: NO PENICILLIUM NOTATUM (M1) IGE <0.10 CLASS 0 HOUSE DUST (TAMAYO) (H1) IGE Reviewed date:01/13/2025 04:36:07 PM Interpretation: Normal Performing Lab:[facility], [facility], [address] [place] [address], [phone] Roby Chávez M.D. Notes/Report: Received Date: NON-FASTING 2 OF 3 ORDERS FASTING:NO FASTING: NO HOUSE DUST (TAMAYO) (H1) IGE <0.10 CLASS 0 DERMATOPHAGOIDES PTERONYSSIN US (D1) IGE Reviewed date:01/13/2025 04:36:07 PM Interpretation: Normal Performing Lab:[facility], [facility], [address] [place] [address], [phone] Roby Chávez M.D. Notes/Report: Received Date: NON-FASTING 2 OF 3 ORDERS FASTING:NO FASTING: NO DERMATOPHAGOIDES PTERONYSSINUS (D1) IGE <0.10 CLASS 0 SWEET VERNAL GRASS (G1) IGE Reviewed date:01/13/2025 04:36:07 PM Interpretation: Normal Performing Lab:1, [facility], [address] [place] [address], [phone] Roby Chávez M.D. Notes/Report: Received Date: NON-FASTING 2 OF 3 ORDERS FASTING:NO FASTING: NO SWEET VERNAL GRASS (G1) IGE <0.10 CLASS 0 BERMUDA GRASS (G2) IGE Reviewed date:01/13/2025 04:36:07 PM Interpretation: Normal Performing Lab:1, [facility], [address] [place] [address], [phone] Roby Chávez M.D. Notes/Report: Received Date: NON-FASTING 2 OF 3 ORDERS FASTING:NO FASTING: NO BERMUDA GRASS (G2) IGE <0.10 CLASS 0 PERENNIAL RYE GRASS (G5) IGE Reviewed date:01/13/2025 04:36:07 PM Interpretation: Normal Performing Lab:1, [facility], [address] [place] [address], [phone] Roby Chávez M.D. Notes/Report: Received Date: NON-FASTING 2 OF 3 ORDERS FASTING:NO FASTING: NO PERENNIAL RYE GRASS (G5) IGE <0.10 CLASS 0 DANDELION (W8) IGE Reviewed date:01/13/2025 04:36:07 PM Interpretation: Normal Performing Lab:[facility], [facility], [address] [place] [address], [phone] Roby Chávez M.D. Notes/Report: Received Date: NON-FASTING 2 OF 3 ORDERS FASTING:NO FASTING: NO DANDELION (W8) IGE <0.10 CLASS 0 VIETNAMESE PLANTAIN (W9) IGE Reviewed date:01/13/2025 04:36:07 PM Interpretation: Normal Performing Lab:[facility], [facility], [address] [place] [address], [phone] Roby Chávez M.D. Notes/Report: Received Date: NON-FASTING 2 OF 3 ORDERS FASTING:NO FASTING: NO VIETNAMESE PLANTAIN (W9) IGE <0.10 CLASS 0 MAPLE (BOX ELDER) (T1) IGE Reviewed date:01/13/2025 04:36:07 PM Interpretation: Normal Performing Lab:[facility], [facility], [address] [place] [address], [phone] Roby Chávez M.D. Notes/Report: Received Date: NON-FASTING 2 OF 3 ORDERS FASTING:NO FASTING: NO MAPLE (BOX ELDER) (T1) IGE <0.10 CLASS 0 BIRCH (T3) IGE Reviewed date:01/13/2025 04:36:07 PM Interpretation: Normal Performing Lab:[facility], [facility], [address] [place] [address], [phone] Roby Chávez M.D. Notes/Report: Received Date: NON-FASTING 2 OF 3 ORDERS FASTING:NO FASTING: NO BIRCH (T3) IGE <0.10 CLASS 0 WALNUT TREE (T10) IGE Reviewed date:01/13/2025 04:36:07 PM Interpretation: Normal Performing Lab:[facility], [facility], [address] [place] [address], [phone] Roby Chávez M.D. Notes/Report: Received Date: NON-FASTING 2 OF 3 ORDERS FASTING:NO FASTING: NO WALNUT TREE (T10) IGE <0.10 CLASS 0 MUGWORT (W6) IGE Reviewed date:01/13/2025 04:36:07 PM Interpretation: Normal Performing Lab:[facility], [facility], [address] [place] [address], [phone] Roby Chávez M.D. Notes/Report: Received Date: NON-FASTING 2 OF 3 ORDERS FASTING:NO FASTING: NO MUGWORT (W6) IGE <0.10 CLASS 0 DERMATOPHAGOIDES FARINAE (D2 ) IGE Reviewed date:01/13/2025 04:36:07 PM Interpretation: Normal Performing Lab:[facility], [facility], [address] [place] [address], [phone] Roby Chávez M.D. Notes/Report: Received Date: NON-FASTING 2 OF 3 ORDERS FASTING:NO FASTING: NO DERMATOPHAGOIDES FARINAE (D2) IGE <0.10 CLASS 0 INTERPRETATION Specific Level [...] analytical performance characteristics have been determined by [employer]. It has not been cleared or approved by the U.S. Food and Drug Administration. This assay has been validated pursuant to the CLIA regulations and is used for clinical purposes. TRESSA GRASS (G6) IGE Reviewed date:01/13/2025 04:36:07 PM Interpretation: Normal Performing Lab:[facility], [facility], [address] [place] [address], [phone] Roby Chávez M.D. Notes/Report: Received Date: NON-FASTING 2 OF 3 ORDERS FASTING:NO FASTING: NO TRESSA GRASS (G6) IGE <0.10 CLASS 0 JADON GRASS([place] BLUE) (G 8) IGE Reviewed date:01/13/2025 04:36:07 PM Interpretation: Normal Performing Lab:1, [facility], [address] [place] [address], [phone] Roby Chávez M.D. Notes/Report: Received Date: NON-FASTING 2 OF 3 ORDERS FASTING:NO FASTING: NO JADON GRASS([place] BLUE) (G8) IGE <0.10 CLASS 0 CLADOSPORIUM HERBARUM (M2) I GE Reviewed date:01/13/2025 04:36:07 PM Interpretation: Normal Performing Lab:[facility], [facility], [address] [place] [address], [phone] Roby Chávez M.D. Notes/Report: Received Date: NON-FASTING 2 OF 3 ORDERS FASTING:NO FASTING: NO CLADOSPORIUM HERBARUM (M2) IGE <0.10 CLASS 0 ALTERNARIA ALTERNATA (M6) IG E Reviewed date:01/13/2025 04:36:07 PM Interpretation: Normal Performing Lab:[facility], [facility], [address] [place] [address], [phone] Roby Chávez M.D. Notes/Report: Received Date: NON-FASTING 2 OF 3 ORDERS FASTING:NO FASTING: NO ALTERNARIA ALTERNATA (M6) IGE <0.10 CLASS 0 OAK (T7) IGE Reviewed date:01/13/2025 04:36:07 PM Interpretation: Normal Performing Lab:[facility] [employer], [facility], [address] [place] [address], [phone] Roby Chávez M.D. Notes/Report: Received Date: NON-FASTING 2 OF 3 ORDERS FASTING:NO FASTING: NO OAK (T7) IGE <0.10 CLASS 0 COMMON RAGWEED (SHORT) (W1) IGE Reviewed date:01/13/2025 04:36:07 PM Interpretation: Normal Performing Lab:1, [facility], [address] [place] [address], [phone] Roby Chávez M.D. Notes/Report: Received Date: NON-FASTING 2 OF 3 ORDERS FASTING:NO FASTING: NO COMMON RAGWEED (SHORT) (W1) IGE <0.10 CLASS 0 BELTRAN'S QUARTERS (GOOSE FOOT) (W10) IGE Reviewed date:01/13/2025 04:36:07 PM Interpretation: Normal Performing Lab:1, [facility], [address] [place] [address], [phone] Roby Chávez M.D. Notes/Report: Received Date: NON-FASTING 2 OF 3 ORDERS FASTING:NO FASTING: NO BELTRAN'S QUARTERS (GOOSE FOOT) (W10) IGE <0.10 CLASS 0 ASPERGILLUS FUMIGATUS (M3) I GE Reviewed date:01/13/2025 04:36:07 PM Interpretation: Normal Performing Lab:[facility], [facility], [address] [place] [address], [phone] Roby Chávez M.D. Notes/Report: Received Date: NON-FASTING 2 OF 3 ORDERS FASTING:NO FASTING: NO ASPERGILLUS FUMIGATUS (M3) IGE <0.10 CLASS 0 MUCOR RACEMOSUS (M4) IGE Reviewed date:01/13/2025 04:36:07 PM Interpretation: Normal Performing Lab:1, [facility], [address] [place] [address], [phone] Roby Chávez M.D. Notes/Report: Received Date: NON-FASTING 2 OF 3 ORDERS FASTING:NO FASTING: NO MUCOR RACEMOSUS (M4) IGE <0.10 CLASS 0 PARKER ALBICANS (M5) IGE Reviewed date:01/13/2025 04:36:07 PM Interpretation: Normal Performing Lab:1, [facility], [address] [place] [address], [phone] Roby Chávez M.D. Notes/Report: Received Date: NON-FASTING 2 OF 3 ORDERS FASTING:NO FASTING: NO PARKER ALBICANS (M5) IGE <0.10 CLASS 0 CULTIVATED RYE GRASS (G12) I GE Reviewed date:01/13/2025 04:36:07 PM Interpretation: Normal Performing Lab:[facility], [facility], [address] [place] [address], [phone] Roby Chávez M.D. Notes/Report: Received Date: NON-FASTING 2 OF 3 ORDERS FASTING:NO FASTING: NO CULTIVATED RYE GRASS (G12) IGE <0.10 CLASS 0 GOLDENROD (W12) IGE Reviewed date:01/13/2025 04:36:07 PM Interpretation: Normal Performing Lab:[facility], [facility], [address] [place] [address], [phone] Roby Chávez M.D. Notes/Report: Received Date: NON-FASTING 2 OF 3 ORDERS FASTING:NO FASTING: NO GOLDENROD (W12) IGE <0.10 CLASS 0 BEECH (T5) IGE Reviewed date:01/13/2025 04:36:07 PM Interpretation: Normal Performing Lab:1, [facility], [address] [place] [address], [phone] Roby Chávez M.D. Notes/Report: Received Date: NON-FASTING 2 OF 3 ORDERS FASTING:NO FASTING: NO BEECH (T5) IGE <0.10 CLASS 0 WILLOW (T12) IGE Reviewed date:01/13/2025 04:36:07 PM Interpretation: Normal Performing Lab:[facility], [facility], [address] [place] [address], [phone] Roby Chávez M.D. Notes/Report: Received Date: NON-FASTING 2 OF 3 ORDERS FASTING:NO FASTING: NO WILLOW (T12) IGE <0.10 CLASS 0 WHITE PINE (T16) IGE Reviewed date:01/13/2025 04:36:07 PM Interpretation: Normal Performing Lab:[facility], [facility], [address] [place] [address], [phone] Roby Chávez M.D. Notes/Report: Received Date: [id number] NON-FASTING 2 OF 3 ORDERS FASTING:NO FASTING: NO WHITE PINE (T16) IGE <0.10 CLASS 0 TRYPTASE Reviewed date:01/13/2025 04:36:07 PM Interpretation: Normal Performing Lab:[facility], [facility], [address] [place] [address], [phone] Roby Chávez M.D. Notes/Report: Received Date: [id number] NON-FASTING 3 OF 3 ORDERS FASTING:NO FASTING: NO TRYPTASE 3.8 <11.0 mcg/L HS-CRP Reviewed date:11/29/2024 08:44:32 AM Interpretation: Performing Lab:[facility], [facility], [address] [place] [address], [phone] Roby Chávez M.D. Notes/Report: Received Date: [id number] NON-FASTING; NON-FASTING; NON-FASTING; NON-FASTING; NON-FAST FASTING:YES FASTING: YES HS CRP 0.4 Reference Range Optimal <1.0 Jemichelle PS et al. Endocr Pract.2017;23(Suppl 2):1-87. For ages >17 Years: hs-CRP mg/L Risk According to AHA/CDC Guidelines <1.0 Lower relative cardiovascular risk. 1.0-3.0 Average relative cardiovascular risk. 3.1-10.0 Higher relative cardiovascular risk. Consider retesting in 1 to 2 weeks to exclude a benign transient elevation in the baseline CRP value secondary to infection or inflammation. >10.0 Persistent elevation, upon retesting, may be associated with infection and inflammation. Huffman TA, Rober GA, Clint RW, et al. Markers of inflammation and cardiovascular disease: application to clinical and public health practice: A statement for healthcare professionals from the Centers for Disease Control and Prevention and the [place] [employer]. Circulation 2003; 107(3): 499-511. SED RATE BY MODIFIED CHESTERERG BAUTISTA Reviewed date:11/29/2024 08:44:32 AM Interpretation: Performing Lab:[facility], [facility], [address] [place] [address], [phone] Roby Chávez M.D. Notes/Report: Received Date: [id number] NON-FASTING; NON-FASTING; NON-FASTING; NON-FASTING; NON-FAST FASTING:YES FASTING: YES SED RATE BY MODIFIED WESTERGREN 2 < OR = 15 mm/h CBC (INCLUDES DIFF/PLT) Reviewed date:11/29/2024 08:44:32 AM Interpretation: Performing Lab:[facility], [facility], [address] [place] [address], [phone] Roby Chávez M.D. Notes/Report: Received Date: [id number] NON-FASTING; NON-FASTING; NON-FASTING; NON-FASTING; NON-FAST FASTING:YES FASTING: YES WHITE BLOOD CELL COUNT 4.5 3.8-10.8 Thousand/ uL RED BLOOD CELL COUNT 5.28 4.20-5.80 Million/uL HEMOGLOBIN 17.0 13.2-17.1 g/dL HEMATOCRIT 50.1 38.5-50.0 % MCV 94.9 80.0-100.0 fL MCH 32.2 27.0-33.0 pg MCHC 33.9 32.0-36.0 g/dL For adults, a slight decrease in the calculated MCHC value (in the range of 30 to 32 g/dL) is most likely not clinically significant; however, it should be interpreted with caution in correlation with other red cell parameters and the patient's clinical condition. RDW 13.1 11.0-15.0 % PLATELET COUNT 177 140-400 Thousand/uL MPV 10.5 7.5-12.5 fL ABSOLUTE NEUTROPHILS 1917 0351-4562 cells/uL ABSOLUTE LYMPHOCYTES 2277 850-3900 cells/uL ABSOLUTE MONOCYTES 270 200-950 cells/uL ABSOLUTE EOSINOPHILS 18 15-500 cells/uL ABSOLUTE BASOPHILS 18 0-200 cells/uL NEUTROPHILS 42.6 LYMPHOCYTES 50.6 MONOCYTES 6.0 EOSINOPHILS 0.4 BASOPHILS 0.4 CREATININE Reviewed date:11/29/2024 08:44:32 AM Interpretation: Performing Lab:[facility], [facility], [address] [place] [address], [phone] Roby Chávez M.D. Notes/Report: Received Date: [id number] NON-FASTING; NON-FASTING; NON-FASTING; NON-FASTING; NON-FAST FASTING:YES FASTING: YES CREATININE 0.86 0.60-1.29 mg/dL EGFR 110 > OR = 60 mL/min/1.73m2 HEPATIC FUNCTION PANEL Reviewed date:11/29/2024 08:44:31 AM Interpretation: Performing Lab:1, [facility], [address] [place] [address], [phone] Roby Chávez M.D. Notes/Report: Received Date: [id number] NON-FASTING; NON-FASTING; NON-FASTING; NON-FASTING; NON-FAST FASTING:YES FASTING: YES PROTEIN, TOTAL 7.0 6.1-8.1 g/dL ALBUMIN 4.8 3.6-5.1 g/dL GLOBULIN 2.2 1.9-3.7 g/dL (calc) ALBUMIN/GLOBULIN RATIO 2.2 1.0-2.5 (calc) BILIRUBIN, TOTAL 0.5 0.2-1.2 mg/dL BILIRUBIN, DIRECT 0.1 < OR = 0.2 mg/dL BILIRUBIN, INDIRECT 0.4 0.2-1.2 mg/dL (calc) ALKALINE PHOSPHATASE 57 36-130 U/L AST 16 10-40 U/L ALT 22 9-46 U/L HS-CRP Reviewed date:03/10/2024 03:06:38 PM Interpretation: Performing Lab:1, [facility], [address] [place] [address], [phone] Roby Chávez M.D. Notes/Report: Received Date: [id number] NON-FASTING; NON-FASTING; NON-FASTING; NON-FASTING FASTING:YES FASTING: YES HS CRP 12.8 Reference Range Optimal <1.0 Jelllatasha PS et al. Endocr Pract.2017;23(Suppl 2):1-87. For ages >17 Years: hs-CRP mg/L Risk According to AHA/CDC Guidelines <1.0 Lower relative cardiovascular risk. 1.0-3.0 Average relative cardiovascular risk. 3.1-10.0 Higher relative cardiovascular risk. Consider retesting in 1 to 2 weeks to exclude a benign transient elevation in the baseline CRP value secondary to infection or inflammation. >10.0 Persistent elevation, upon retesting, may be associated with infection and inflammation. Nathanael TA, Rober GA, Clint RW, et al. Markers of inflammation and cardiovascular disease: application to clinical and public health practice: A statement for healthcare professionals from the Centers for Disease Control and Prevention and the [place] [employer]. Circulation 2003; 107(3): 499-511. CBC (INCLUDES DIFF/PLT) Reviewed date:03/10/2024 03:06:38 PM Interpretation: Performing Lab:[facility], [facility], [address] [place], [phone] Roby Chávez M.D. Notes/Report: Received Date: NON-FASTING; NON-FASTING; NON-FASTING; NON-FASTING FASTING:YES FASTING: YES WHITE BLOOD CELL COUNT 6.4 3.8-10.8 Thousand/ uL RED BLOOD CELL COUNT 4.94 4.20-5.80 Million/uL HEMOGLOBIN 16.2 13.2-17.1 g/dL HEMATOCRIT 46.3 38.5-50.0 % MCV 93.7 80.0-100.0 fL MCH 32.8 27.0-33.0 pg MCHC 35.0 32.0-36.0 g/dL For adults, a slight decrease in the calculated MCHC value (in the range of 30 to 32 g/dL) is most likely not clinically significant; however, it should be interpreted with caution in correlation with other red cell parameters and the patient's clinical condition. RDW 14.0 11.0-15.0 % PLATELET COUNT 216 140-400 Thousand/uL MPV 10.7 7.5-12.5 fL ABSOLUTE NEUTROPHILS 2112 0039-5366 cells/uL ABSOLUTE LYMPHOCYTES 3635 850-3900 cells/uL ABSOLUTE MONOCYTES 448 200-950 cells/uL ABSOLUTE EOSINOPHILS 147 15-500 cells/uL ABSOLUTE BASOPHILS 58 0-200 cells/uL NEUTROPHILS 33 LYMPHOCYTES 56.8 MONOCYTES 7.0 EOSINOPHILS 2.3 BASOPHILS 0.9 CREATININE Reviewed date:03/10/2024 03:06:38 PM Interpretation: Performing Lab:[facility], [facility], [address] [place] [address], [phone] Roby Chávez M.D. Notes/Report: Received Date: NON-FASTING; NON-FASTING; NON-FASTING; NON-FASTING FASTING:YES FASTING: YES CREATININE 1.03 0.60-1.29 mg/dL EGFR 92 > OR = 60 mL/min/1.73m2 HEPATIC FUNCTION PANEL Reviewed date:03/10/2024 03:06:38 PM Interpretation: Performing Lab:1, [facility], [address] [place] [address], [phone] Roby Chávez M.D. Notes/Report: Received Date: NON-FASTING; NON-FASTING; NON-FASTING; NON-FASTING FASTING:YES FASTING: YES PROTEIN, TOTAL 7.3 6.1-8.1 g/dL ALBUMIN 4.8 3.6-5.1 g/dL GLOBULIN 2.5 1.9-3.7 g/dL (calc) ALBUMIN/GLOBULIN RATIO 1.9 1.0-2.5 (calc) BILIRUBIN, TOTAL 0.7 0.2-1.2 mg/dL BILIRUBIN, DIRECT 0.1 < OR = 0.2 mg/dL BILIRUBIN, INDIRECT 0.6 0.2-1.2 mg/dL (calc) ALKALINE PHOSPHATASE 61 36-130 U/L AST 16 10-40 U/L ALT 24 9-46 U/L QUANTIFERON(R)-TB GOLD Reviewed date:03/14/2024 01:10:57 PM Interpretation: Performing Lab:[facility], [facility], [address] [place] [address], [phone] Roby Chávez M.D. Notes/Report: Received Date: NON-FASTING FASTING:YES FASTING: YES QUANTIFERON(R)-TB GOLD PLUS, 1 TUBE NEGATIVE NEGATIVE Negative test result. M. tuberculosis complex infection unlikely. NIL 0.05 MITOGEN-NIL 8.15 TB1-NIL <0.00 TB2-NIL <0.00 The Nil tube value reflects the background interferon gamma immune response of the patient's blood sample. This value has been subtracted from the patient's displayed TB and Mitogen results. Lower than expected results with the Mitogen tube prevent false-negative Quantiferon readings by detecting a patient with a potential immune suppressive condition and/or suboptimal pre-analytical specimen handling. The TB1 Antigen tube is coated with the M. tuberculosis-specific antigens designed to elicit responses from TB antigen primed CD4+ helper T-lymphocytes. The TB2 Antigen tube is coated with the M. tuberculosis-specific antigens designed to elicit responses from TB antigen primed CD4+ helper and CD8+ cytotoxic T-lymphocytes. 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 FMHx of throat CA Diagnosis 1 Chronic pharyngitis (J31.2) Diagnosis 2 Dysphonia (R49.0) Referral Organization Rhe[facility]ology [facility] Referring Provider First Name JANIS Referring Provider Last Name BUCK [facility] Special[facility] Ot[facility]olo Referral Priority Routine Medications Medication SIG (Take, Route, Frequency, Duration) Notes Start Date End Date Status Pimecrolimus 1 % 1 application Sole Sewer Hand al Twice a day; Duration: 30 days Active Ozempic (1 MG/DOSE) 4 MG/3ML as directed Subcutaneous Act royce Vitamin D (Cholecalciferol) 50 MCG (1999) 1 capsule Orally Once a day Active Cosentyx UnoReady 300 MG/2ML 300 MG Subcutaneous Every 4 weeks; Duration: 28 days 12/08/2024 Active Carbidopa-Levodopa 25-100 MG Oral; Duration: 30 Days Acti ve Methotrexate Sodium 2.5 MG TAKE 6 TABLET S BY MOUTH EVERY WEEK Active Gabapentin 300 MG Oral; Duration: 30 Days Active Folic Acid 1 MG 1 tablet Orally Once a day except on the Methotrexate day Active Famotidine 40 MG Oral; Duration: 30 Days Active Adderall XR 10 MG 1 capsule in the mor josse Orally three time a day Active Ergocalciferol 50,000 IU 1 capsule oral q week Active Problems Problem Type SNOMED Code ICD Code Onset Dates Problem Status W/U Status Risk Notes Problem Parkinson's disease (50855830) Parkinson's disease (G20) Active confirmed Problem Chronic pharyngitis (388624) Chronic pharyngitis (J31.2) Active confirmed Problem Celiac disease (508013709) Celiac disease (K90.0) Active confirmed Problem Inflammatory polyarthropathy (447453577) 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 Pt. reports ongoing severe polyarthralgia for past 4 years accompanied by prolonged morning stiffness 2 hours and fatigue. Inflammatory atraumatic back pain (improves with activity, not relieved by rest). Daily use of OTC anti-inflammato ry, not effective. Autoimmune work up in process. Will evaluate. 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 on Cosentyx 300mg every 4 weeks and MTX 6 tabs/ week. Helping and tolerating. Having issues receiving the meds from his pharmacy. - OV 11.08.2024 Pt. on Cosentyx 150mg and MTX 6 tabs/ week. Pt. educated to take Cosentyx every 4 weeks. Worsening polyarthralgia on Cosentyx 150mg., started . - OV 1..2024: Pt. on Cosentyx and MTX 6 tabs/ week. 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 [...] vasculitic skin lesion, no NS involvement). Negative Antiphospholipi d antibody panel (neg aCL, [id number], neg LAC). + Psoriasis, HS-CRP elevated. OV 11.17.2023 Recent diagnosis of Psoriasis. Pt. reports ongoing severe polyarthralgia for past 4 years accompanied by prolonged morning stiffness 2 hours and fatigue. Inflammatory atraumatic back pain (improves with activity, not relieved by rest). Daily use of OTC anti-inflammato ry, not effective. Problem Allergic rhinitis (31931228) Rhinitis, allergic (J30.9) Active confirmed Vital Signs Heart Rate 81 /min 02/10/2025 Temperature 37.2 C 02/10/2025 Blood pressure diastolic 75 mm Hg 02/10/2025 Height 184 cm 02/10/2025 Blood pressure systolic 115 mm Hg 02/10/2025 Weight 91.3 kg 01/03/2025 BMI 26.96 kg/m2 01/03/2025 Procedures Procedure Date Ordered Date Performed Result Body Sit e COSENTYX 150 mg 02/23/2024 N/A Encounters Encounter Location Date Provider Diagnosis [facility] [address] [phone] 02/23/2024 JANIS JANE Psoriatic arthritis L40.50 ; Rheumatoid factor positive R76.8 ; Lateral epicondylitis, right elbow M77.11 ; Trochanteric bursitis, right hip M70.61 ; Spondylosis without myelopathy or radiculopathy, lumbosacral region M47.817 ; Disorder of bone density and structure, unspecified M85.9 ; Plaque psoriasis L40.0 ; Celiac disease K90.0 ; Vitamin D deficiency E55.9 and Pain in left elbow M25.522 [facility] [address] [place] [id number] 04/05/2024 Kaushar Willson Psoriatic arthritis L40.50 ; Rheumatoid factor positive R76.8 ; Lateral epicondylitis, right elbow M77.11 ; Trochanteric bursitis, right hip M70.61 ; Spondylosis without myelopathy or radiculopathy, lumbosacral region M47.817 ; Disorder of bone density and structure, unspecified M85.9 ; Plaque psoriasis L40.0 ; Celiac disease K90.0 ; Vitamin D deficiency E55.9 and Pain in left elbow M25.522 Rheumatology [facility]ergy [facility] [employer] [address] [address] [id number] 05/26/2024 Kaushar Willson Psoriatic arthritis L40.50 ; Rheumatoid factor positive R76.8 ; Lateral epicondylitis, right elbow M77.11 ; Trochanteric bursitis, right hip M70.61 ; Spondylosis without myelopathy or radiculopathy, lumbosacral region M47.817 ; Disorder of bone density and structure, unspecified M85.9 ; Plaque psoriasis L40.0 ; Celiac disease K90.0 ; Vitamin D deficiency E55.9 and Pain in left elbow M25.522 [facility] [employer] [employer] [address] [id number] 11/08/2024 Kaushar Willson Psoriatic arthritis L40.50 ; Celiac disease K90.0 ; Plaque psoriasis L40.0 ; Rheumatoid factor positive R76.8 and Disorder of bone density and structure, unspecified M85.9 [facility] [employer] [employer] [address] [id number] 01/03/2025 JOCELYN JANE 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 and Rhinitis, allergic J30.9 [facility] [employer] [address] [id number] 02/10/2025 Kaushar Willson Psoriatic arthritis L40.50 ; Celiac disease K90.0 ; Plaque psoriasis L40.0 ; Rheumatoid factor positive R76.8 ; Disorder of bone density and structure, unspecified M85.9 and Elevated C-reactive protein (CRP) R79.82 [facility] [address] [id number] 09/05/2024 Naila Ramos Psoriatic arthritis L40.50 ; Celiac disease K90.0 ; Plaque psoriasis L40.0 ; Rheumatoid factor positive R76.8 and Disorder of bone density and structure, unspecified M85.9 [facility] [address] [id number] 12/08/2024 JANISULI JANE Rheumatology [facility] [place] [address] [id number] 02/23/2024 JANIS [facility] Allergy [facility] [place] [address] [id number] 02/23/2024 [facility] Allergy [facility] [employer] [address] [place] [phone] 03/07/2024 [facility] [address] [id number] 03/10/2024 JANIS [facility] Allergy [facility] [place] [address] [id number] 03/14/2024 [facility] Allergy [address] [id number] 11/08/2024 [facility] Allergy [address] [id number] 12/07/2024 JANIS KAWADE Psoriatic arthritis L40.50 and Spondylosis without myelopathy or radiculopathy, lumbosacral region M47.817 Assessments Encounter Date Diagnosis (ICD Code) Assessment Notes Treatment Notes Treatment Clinical Notes Section Notes 02/23/2024 Psoriatic arthritis (ICD-10 - L40.50) OV 10.8.24 insufficient response to Methotrexate. Adding a bDMARD [...] involvement). Negative Antiphospholipid antibody panel (neg aCL, [id number], neg LAC). + Psoriasis, HS-CRP elevated. OV 7.2 Recent diagnosis of Psoriasis. Pt. reports ongoing severe polyarthralgia for past 4 years accompanied by prolonged morning stiffness 2 hours and fatigue. Inflammatory atraumatic back pain (improves with activity, not relieved by rest). Daily use of OTC anti-inflammatory, not effective. Autoimmune work up in process. Will evaluate. Increase methotrexate to 10 tabs once a week. Labs now. Return for Cosentyx 1st dose 1 week after the labs. (OK with our sample) C-spine XR, (B) shoulder XR. - PT defers X-rays and U/S because of deductible cost . At next OV (B) foot XR, (B) hand XR. Diagnostic ultrasound of the elbow left . Enroll in Cosentyx co-pay assistance program. We will request a Prior Authorization forCosentyx from your health insurance company and let you know when approved. You will then call your pharmacy to order Cosentyx. Once approved, please, schedule a Cosentyx teaching session with our Registered Nurse and bring your Cosentyx with you. Fasting lab test few days after the 3rd or 4th dose of Cosentyx. Hold Cosentyx if you develop any allergic [...] with Cosentyx. Return for Office visit in 6 weeks. 02/23/2024 Rheumatoid factor positive (ICD-10 - R76.8) Despite +RF no rheumatoid arthritis is seen 04/05/2024 Psoriatic arthritis (ICD-10 - L40.50) - OV 04.05.2024: Pt. on Cosentyx, loading dosages. Stopped Methotrexate since starting the Cosentyx in .Pt. to resume MTX at 6 tabs/ week and continue cosentyx. OV 02.22.24 insufficient response to Methotrexate. Adding a bDMARD [...] involvement). Negative Antiphospholipid antibody panel (neg aCL, [id number], neg LAC). + Psoriasis, HS-CRP elevated. OV 7. Recent diagnosis of Psoriasis. Pt. reports ongoing severe polyarthralgia for past 4 years accompanied by prolonged morning stiffness 2 hours and fatigue. Inflammatory atraumatic back pain (improves with activity, not relieved by rest). Daily use of OTC anti-inflammatory, not effective. Labs now. resume Methotrexate at 6 tabs/week C-spine XR, (B) shoulder XR. - PT defers X-rays and U/S because of deductible cost . At next OV (B) foot XR, (B) hand XR. - Defers Diagnostic ultrasound of the elbow left . Enroll in Cosentyx co-pay assistance program.Hold Cosentyx if you develop any allergic skin [...] treated with Cosentyx.Return for Office visit in 8 weeks. 04/05/2024 Rheumatoid factor positive (ICD-10 - R76.8) Despite +RF no rheumatoid arthritis is seen 05/26/2024 Psoriatic arthritis (ICD-10 - L40.50) - OV 1.9.2024: Pt. on Cosentyx and MTX 6 tabs/ week. 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 [...] involvement). Negative Antiphospholipid antibody panel (neg aCL, [id number], neg LAC). + Psoriasis, HS-CRP elevated. 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 on Cosentyx 150mg and MTX 6 tabs/ week. Pt. educated to take Cosentyx every 4 weeks. Worsening polyarthralgia on Cosentyx 150mg. - OV 05.26.2024: Pt. on Cosentyx and MTX 6 tabs/ week. 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 [...] involvement). Negative Antiphospholipid antibody panel (neg aCL, [id number], neg LAC). + Psoriasis, HS-CRP elevated. OV [...] going sore throat : [facility].[address] [place] [phone] C-spine XR, (B) shoulder XR. - [...] 3 months or sooner if needed. . 02/10/2025 Psoriatic arthritis (ICD-10 - L40.50) - [...] 6 tabs/ week. 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 [...] involvement). Negative Antiphospholipid antibody panel (neg aCL, [id number], neg LAC). + Psoriasis, HS-CRP elevated. OV 7.2 Recent diagnosis of Psoriasis. Pt. reports ongoing [...] time also needs Appt. with Dr. Durand 09/05/2024 Celiac disease (ICD-10 - K90.0) 09/05/2024 Psoriatic arthritis (ICD-10 - L40.50) - OV 05.26.2024: Pt. on Cosentyx and MTX 6 tabs/ week. 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 - OV 04.05.2024: Pt. on Cosentyx, loading dosages. Stopped Methotrexate since starting the Cosentyx in .Pt. to resume MTX at 6 tabs/ week and continue cosentyx. OV 24 insufficient response to Methotrexate. Adding a bDMARD [...] involvement). Negative Antiphospholipid antibody panel (neg aCL, [id number], neg LAC). + Psoriasis, HS-CRP elevated. OV [...] foot XR, (B) hand XR. - Defers 12/07/2024 Psoriatic arthritis (ICD-10 - L40.50) - OV 11.08.2024 Pt. on Cosentyx 150mg and MTX 6 tabs/ week. Pt. educated to take Cosentyx every 4 weeks. Worsening polyarthralgia on Cosentyx 150mg. - OV 05.26.2024: Pt. on Cosentyx and MTX 6 tabs/ week. 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 [...] involvement). Negative Antiphospholipid antibody panel (neg aCL, [id number], neg LAC). + Psoriasis, HS-CRP elevated. OV 7.2.2023 Recent diagnosis of Psoriasis. Pt. reports ongoing severe polyarthralgia for past 4 years accompanied by prolonged morning stiffness 2 hours and fatigue. Inflammatory atraumatic back pain (improves with activity, not relieved by rest). Daily use of OTC anti-inflammatory, not effective. 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) 02/10/2025 Plaque psoriasis (ICD-10 - L40.0) 09/05/2024 Plaque psoriasis (ICD-10 - L40.0) 05/26/2024 Lateral epicondylitis, right elbow (ICD-10 - M77.11) 11/08/2024 Plaque psoriasis (ICD-10 - L40.0) 04/05/2024 Lateral epicondylitis, right elbow (ICD-10 - M77.11) 02/23/2024 Lateral epicondylitis, right elbow (ICD-10 - M77.11) 02/23/2024 Trochanteric bursitis, right hip (ICD-10 - M70.61) 04/05/2024 Trochanteric bursitis, right hip (ICD-10 - M70.61) 05/26/2024 Trochanteric bursitis, right hip (ICD-10 - M70.61) 02/10/2025 Rheumatoid factor positive (ICD-10 - R76.8) Despite +RF no rheumatoid arthritis is seen 11/08/2024 Rheumatoid factor positive (ICD-10 - R76.8) Despite +RF no rheumatoid arthritis is seen 09/05/2024 Rheumatoid factor positive (ICD-10 - R76.8) Despite +RF no rheumatoid arthritis is seen 09/05/2024 Disorder of bone density and structure, unspecified (ICD-10 - M85.9) 02/10/2025 Disorder of bone density and structure, unspecified (ICD-10 - M85.9) 05/26/2024 Spondylosis without myelopathy or radiculopathy, 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) 11/08/2024 Disorder of bone density and structure, unspecified (ICD-10 - M85.9) 04/05/2024 Spondylosis without myelopathy or radiculopathy, 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) 02/23/2024 Spondylosis without myelopathy or radiculopathy, 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) 02/23/2024 Disorder of bone density and structure, unspecified (ICD-10 - M85.9) 04/05/2024 Disorder of bone density and structure, unspecified (ICD-10 - M85.9) 02/10/2025 Elevated C-reactive protein (CRP) (ICD-10 - R79.82) 05/26/2024 Disorder of bone density and structure, unspecified (ICD-10 - M85.9) 05/26/2024 Plaque psoriasis (ICD-10 - L40.0) 02/23/2024 Plaque psoriasis (ICD-10 - L40.0) 04/05/2024 Plaque psoriasis (ICD-10 - L40.0) 02/23/2024 Celiac disease (ICD-10 - K90.0) 04/05/2024 Celiac disease (ICD-10 - K90.0) 05/26/2024 Celiac disease (ICD-10 - K90.0) 04/05/2024 Vitamin D deficiency (ICD-10 - E55.9) 05/26/2024 Vitamin D deficiency (ICD-10 - E55.9) 02/23/2024 Vitamin D deficiency (ICD-10 - E55.9) 02/23/2024 Pain in left elbow (ICD-10 - M25.522) 04/05/2024 Pain in left elbow (ICD-10 - M25.522) 05/26/2024 Pain in left elbow (ICD-10 - M25.522) 02/23/2024 Other Consult Neurology ( - movement disorder; Dr. 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 IgA undetectable. 01/03/2025 Other 1. Laboratory testing 2. Cetirizine 10mg twice per day (Zyrtec) 3. Famotidine as instructed at night 4. Follow-up after laboratory testing Plan Of Treatment Pending Test Test Name Order Date X ray : Hip, right 11/17/2023 X ray : Elbow, right 11/17/2023 DEXA Hip and Spine 11/17/2023 X ray : Lumbosacral Spine 4v 11/17/2023 Chest X-ray PA and lateral 11/17/2023 QUANTIFERON(R)-TB GOLD 02/10/2025 LYME DISEASE ANTIBODIES (IGG, IGM) WESTE RN BLOT 11/17/2023 ALLERGY REGIONAL PROFILE 01/03/2025 LYME AB SCREEN 11/17/2023 HEPATIC FUNCTION PANEL 12/08/2023 HEPATIC FUNCTION PANEL 05/26/2024 HEPATIC FUNCTION PANEL 11/08/2024 HEPATIC FUNCTION PANEL 02/10/2025 CREATININE 02/10/2025 CREATININE 11/08/2024 CREATININE 05/26/2024 CREATININE 12/08/2023 CBC (INCLUDES DIFF/PLT) 12/08/2023 CBC (INCLUDES DIFF/PLT) 11/08/2024 CBC (INCLUDES DIFF/PLT) 05/26/2024 CBC (INCLUDES DIFF/PLT) 02/10/2025 SED RATE BY MODIFIED WESTERGREN 02/11/20 25 SED RATE BY MODIFIED WESTERGREN 05/26/19 25 SED RATE BY MODIFIED WESTERGREN 11/09/19 25 Hep C Ab w Rfx to HCV RNA 11/17/2023 COSENTYX 150 mg 02/23/2024 HS-CRP 05/26/2024 HS-CRP 12/08/2023 HS-CRP 11/08/2024 Next Appt Details Provider Name:Louis Willson, 05/05/2025 08:00:00 AM, [address] [place] [address], [phone], Provider Name:JANIS JANE, 06/22/2025 09:00:00 AM, [address] [place] [address], [phone], Insurance Providers Payer Name Payer Address Payer Phone Subscriber Number Group Number Insured Name Patient Relationship to Insured Coverage Start Date Coverage End Date KACIEDELFINO Javier Ada DORA [address], [place] [phone] [id number] VIKI OLIVER Self - patient is the insured Medical (General) History Medical History History ICD Code arthritis: No anxiety: Yes asthma: No eczema: Yes psoriasis: Yes osteoporosis: No gout: No hypothyroidism: No abnormal liver function: No fatty liver: No acid reflux: Yes bowel disorders: Yes Crohns SI: No ulcerative colitis: No celiac sprue: Yes diverticulosis: No hives: No hypertension: No multiple sclerosis: No recurrent sinusitis: No sleep apnea: No varicose veins: No kidney stones: No migraine headaches: No human immunodeficiency virus (HIV), posi tive: No cancer, colon: No family history of colon cancer: No psoriasis Surgical History Surgery Date(Month/Year) Appendectomy 2009 no EGD/Colonoscopy
== END 2025-02-14 14:11 | disposition home or self-care (01) ==
LOC: HO.HSMS 13:30
PROVIDERS: Visit Provider Psychiatry & Neurology Neurology
DX: G24.3 Spasmodic torticollis (principal)
CPT/HCPCS: 64616

== ENCOUNTER → 2025-02-14 13:29 | Outpatient (BNVA) | payer BC, SELFPAY | PROVIDERS: Visit Provider Psychiatry & Neurology Neurology | DX: G24.3 Spasmodic torticollis (principal); G25.0 Essential tremor | CPT/HCPCS: 64616; 99211; J0588 ==